=== PATIENT | male | born 1985 | race Caucasian/White ===

== ENCOUNTER 2016-10-19 11:33 | Emergency (ER) | payer BC ==
[2016-10-19] MEDS ORDERED: SODIUM CHLORIDE 0.9% 1,000 ML IV STA ×2 (13:12)
[2016-10-19] MEDS ORDERED: HYDROmorphone 1 MG/ML 1 ML SYRINGE IVP STA (13:14)
[2016-10-19] MEDS ORDERED: ONDANSETRON 4 MG/2 ML VIAL IVP STA (13:14)
[2016-10-19 13:41] LABS: Basophils # (A) 0.1 k/uL (0-0.2); Basophils % (A) 0 %; CH 31.1; CHCM 35.7; Eosinophils # (A) 0.2 k/uL (0-0.7); Eosinophils % (A) 1 %; HCT 42.6 % (39.0-53.0); HDW 2.88; HGB 14.7 gm/dL (13.0-17.5); Luc % (Auto) 2; Lymphocytes # (A) 1.6 k/uL (1.0-4.8); Lymphocytes % (A) 12 %; MCH 30.1 pg (25.0-35.0); MCHC 34.4 g/dL (31.0-37.0); MCV 87.5 fL (80.0-100.0); Mean Platelet Volume 6.8; Monocytes # (A) 0.9 k/uL (0-1.0); Monocytes % (A) 6 %; Neutrophils # (A) 11.1 k/uL (1.3-7.7); Neutrophils % (A) 79 %; RBC 4.87 m/uL (4.30-5.90); RDW 12.9 % (11.5-15.5); WBC (Perox) 14.26
--- NOTE | 2016-10-19 13:48 | ED ---
General Adult HPI - General Chief complaint: Abdominal Pain Stated complaint: Abdominal/Back Pain Time Seen by Provider: 10/19/16 13:01 Source: patient, RN notes reviewed Mode of arrival: wheelchair Limitations: no limitations - History of Present Illness Initial comments: Patient is a 31-year-old male who presents emergency room today with chief complaint of increased left-sided abdominal pain today. He does move to a history of some constipation. States she tried a laxative when he got home from work this morning. States she's been unable to go. He states having increased pain in the left side of the abdomen. He does admit to a history of a testicular mass. He states he was told by urology that he should have it removed. He states he was going to have a second pill and. He does admit that he had this follow-up approximately 2 months ago his nurse's been increased pain and increased size to the left testicle. He denies any other complaints or symptoms at this time. Patient denies any recent fever, chills, shortness of breath, chest pain, nausea or vomiting, numbness or tingling, dysuria or hematuria, constipation or diarrhea, headaches or visual changes, or any other complaints. - Related Data Previous Rx's Medication Instructions Recorded Hydrocodone/Acetaminophen [[place] 1 each PO Q6HR PRN #20 tab 10/19/16 5-325] Allergies Allergy/AdvReac Type Severity Reaction Status Date / Time codeine Allergy Vomiting Verified 10/19/16 11:48 Review of Systems ROS Statement: Those systems with pertinent positive or pertinent negative responses have been documented in the HPI. ROS Other: All systems not noted in ROS Statement are negative. Past Medical History Past Medical History: No Reported History History of Any Multi-Drug Resistant Organisms: None Reported Past Surgical History: Hernia Repair Past Anesthesia/Blood Transfusion Reactions: No Reported Reaction Additional Past Anesthesia/Blood Transfusion Reaction / Comment(s): never had anesthesia Past Psychological History: Anxiety Smoking Status: Former smoker Past Alcohol Use History: None Reported Past Drug Use History: None Reported - Past Family History Mother Family Medical History: No Reported History General Exam - General Exam Comments Initial Comments: General: The patient is awake and alert, in no distress, and does not appear acutely ill. Eye: Pupils are equal, round and reactive to light, extra-ocular movements are intact. No nystagmus. There is normal conjunctiva bilaterally. No signs of icterus. Ears, nose, mouth and throat: There are moist mucous membranes and no oral lesions. Neck: The neck is supple, there is no tenderness or JVD. Cardiovascular: There is a regular rate and rhythm. No murmur, rub or gallop is appreciated. Respiratory: Lungs are clear to auscultation, respirations are non-labored, breath sounds are equal. No wheezes, stridor, rales, or rhonchi. Gastrointestinal: Normal. Standard. Normal bowel sounds. Abdomen soft on palpation. Patient does have tenderness to the left lower quadrant. No rebound tenderness. No guarding. Musculoskeletal: Normal ROM, no tenderness. Strength 5/5. Sensation intact. Pulses equal bilaterally 2+. Neurological: A&O x 3. CN II-XII intact, There are no obvious motor or sensory deficits. Coordination appears grossly intact. Speech is normal. Skin: Skin is warm and dry and no rashes or lesions are noted. Psychiatric: Cooperative, appropriate mood & affect, normal judgment. : Patient does have abnormal appearance of the left testicle with increased swelling and irregularities. Firm on palpation. Limitations: no limitations Course Vital Signs 10/19/16 10/19/16 10/19/16 11:46 13:29 14:57 Temperature 98.5 F Pulse Rate 102 H 96 92 Respiratory 20 15 14 Rate Blood Pressure 136/61 126/64 125/67 O2 Sat by Pulse 99 97 95 Oximetry 10/19/16 15:05 Temperature Pulse Rate Respiratory 16 Rate Blood Pressure 125/67 O2 Sat by Pulse Oximetry Medical Decision Making - Medical Decision Making Case discussed in detail with attending physician Dr. Pradhan. Patient's labs been reviewed. Patient's ultrasound does show testicular masses. 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 These results were discussed with the patient. The importance of following up with his urologist and family doctor were discussed. Patient made aware that this is felt to be cancerous lesions in the left testicle at this time. Patient x-ray does show some moderate stool. He does admit to some constipation. We'll give magnesium citrate. He is requesting pain medication due to pain. It was discussed the narcotic use can cause constipation. He states he's aware of this. He will be given a short prescription of [place] to use but advised that he should make sure that he is able to have bowel movements prior to use of this. He is advised follow-up with his urologist and family doctor tomorrow. Patient advised to return to emergency room for any other concerns. Patient states understanding and is in agreement with this plan. - Lab Data Result diagrams: 10/19/16 12:46 10/19/16 12:46 Lab Results 10/19/16 10/19/16 10/19/16 Range/Units 12:46 12:46 16:00 WBC 14.0 H (3.8-10.6) k/uL RBC 4.87 (4.30-5.90) m/uL Hgb 14.7 (13.0-17.5) gm/dL Hct 42.6 (39.0-53.0) % MCV 87.5 (80.0-100.0) fL MCH 30.1 (25.0-35.0) pg MCHC 34.4 (31.0-37.0) g/dL RDW 12.9 (11.5-15.5) % Plt Count 357 (150-450) k/uL Neutrophils % 79 % Lymphocytes % 12 % Monocytes % 6 % Eosinophils % 1 % Basophils % 0 % Neutrophils # 11.1 H (1.3-7.7) k/uL Lymphocytes # 1.6 (1.0-4.8) k/uL Monocytes # 0.9 (0-1.0) k/uL Eosinophils # 0.2 (0-0.7) k/uL Basophils # 0.1 (0-0.2) k/uL Sodium 141 (137-145) mmol/L Potassium 3.9 (3.5-5.1) mmol/L Chloride 103 (98-107) mmol/L Carbon Dioxide 24 (22-30) mmol/L Anion Gap 14 mmol/L BUN 11 (9-20) mg/dL Creatinine 0.80 (0.66-1.25) mg/dL Est GFR (MDRD) Af Amer >60 (>60 ml/min/1.73 sqM) Est GFR (MDRD) Non-Af >60 (>60 ml/min/1.73 sqM) Glucose 84 (74-99) mg/dL Calcium 9.9 (8.4-10.2) mg/dL Total Bilirubin 0.5 (0.2-1.3) mg/dL AST 32 (17-59) U/L ALT 39 (21-72) U/L Alkaline Phosphatase 93 (38-126) U/L Total Protein 7.4 (6.3-8.2) g/dL Albumin 4.5 (3.5-5.0) g/dL Amylase 50 (30-110) U/L Lipase 309 H (23-300) U/L Urine Color Yellow Urine Appearance Clear (Clear) Urine pH 6.5 (5.0-8.0) Ur Specific [place] 1.016 (1.001-1.035) Urine Protein Negative (Negative) Urine Glucose (UA) Negative (Negative) Urine Ketones Negative (Negative) Urine Blood Negative (Negative) Urine Nitrate Negative (Negative) Urine Bilirubin Negative (Negative) Urine Urobilinogen 2.0 (<2.0) mg/dL Ur Leukocyte Esterase Negative (Negative) Disposition Clinical Impression: Testicular mass, Retroperitoneal lymphadenopathy Disposition: HOME SELF-CARE Condition: Stable Instructions: Testicle Pain (ED) Additional Instructions: Please use laxative as discussed. Please use pain medication as prescribed. Please follow-up the urologist and family doctor tomorrow as discussed. Please return here to the emergency room if any symptoms increase or worsen or for any other concerns. Prescriptions: Hydrocodone/Acetaminophen [[place] 5-325] 1 each PO Q6HR PRN #20 tab PRN Reason: Pain Referrals: None,Stated [Primary Care Provider] - 1-2 days Howie Gayle MD [STAFF PHYSICIAN] - 1-2 days Time of Disposition: 17:15
[2016-10-19 13:59] LABS: ALT 39 U/L (21-72); AST 32 U/L (17-59); Alkaline Phosphatase 93 U/L (38-126); Amylase 50 U/L (30-110); Anion Gap 14 mmol/L; Blood Urea Nitrogen 11 mg/dL (9-20); Calcium 9.9 mg/dL (8.4-10.2); Carbon Dioxide 24 mmol/L (22-30); Chloride 103 mmol/L (98-107); Glucose 84 mg/dL (74-99); Non-African American GFR(MDRD) >60 (>60 ml/min/1.73 sqM); Potassium 3.9 mmol/L (3.5-5.1); Sodium 141 mmol/L (137-145); Total Bilirubin 0.5 mg/dL (0.2-1.3); Total Protein 7.4 g/dL (6.3-8.2)
--- NOTE | 2016-10-19 15:11 | XR ---
EXAMINATION TYPE: XR KUB DATE OF EXAM ORDERED: 10/19/2016 3:05 PM HISTORY: Left-sided abdominal pain. COMPARISON: None. FINDINGS: The abdominal gas pattern is normal. There is no evidence of obstruction or free air. No u nusual calcifications are seen. IMPRESSION: NORMAL ABDOMEN.
[2016-10-19 15:42] VITALS: RESP 16
[2016-10-19] MEDS ORDERED: RX INFO: IV CONTRAST WAS GIVEN 1 EACH MISC MISCELLANE PRN (16:10)
[2016-10-19 16:43] LABS: Appearance,Urine Clear (Clear); Bilirubin,Urine Negative (Negative); Glucose,Urine (UA) Negative (Negative); Ketones,Urine Negative (Negative); Leukocyte Esterase,Urine Negative (Negative); Nitrite,Urine Negative (Negative); PH, Urine 6.5 (5.0-8.0); Protein,Urine Negative (Negative); Specific Gravity,Urine 1.016 (1.001-1.035); UA Billing (MACRO vs. MICRO) CHEM
--- NOTE | 2016-10-19 16:51 | CT ---
EXAMINATION TYPE: CT abdomen pelvis w con DATE OF EXAM: 10/19/2016 4:36 PM COMPARISON: NONE HISTORY: Left flank and scrotal pain CT DLP: 397 mGycm, Automated Exposure Control for Dose Reduction was Utilized. CONTRAST: CT scan of the abdomen and pelvis is performed without oral but with IV Contrast, patient injected wi th 100 mL of Omnipaque 300. FINDINGS: LUNG BASES: Dependent atelectatic changes seen in both lung bases. LIVER/GB: No significant abnormality is appreciated. PANCREAS: No significant abnormality is seen. SPLEEN: No significant abnormality is seen. ADRENALS: No significant abnormality is seen. KIDNEYS: There is suspected 1-2 nonobstructing calculi right kidney measuring up to 2 mm in size. Jus t below level of left renal artery and vein there is heterogeneous mass probable abnormal adenopathy left periaortic level measuring 3.1 x 2.1 cm. BOWEL: Evaluation bowel is suboptimal due to lack of enteric contrast. There is no suspicious small o r large bowel dilatation seen. PROSTATE/SEMINAL VESICLES: No gross abnormality seen. Right-sided pelvic phlebolith is noted. LYMPH NODES: C kidney section above there is suspected left groin adenopathy adjacent to left inferio r rectus muscle measuring 1.9 x 1.3 cm axial image 70. Heterogeneous left testicle correlates with re cent scrotal ultrasound. OSSEOUS STRUCTURES: No significant abnormality is seen. OTHER: No significant additional abnormality is seen. 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 Urology and oncol ogy nonemergent follow-up advised. Consider nonemergent PET/CT correlation.
[2016-10-19] MEDS ORDERED: MAGNESIUM CITRATE 296 ML BOTTLE PO ONE (17:17)
[2016-10-19 17:34] VITALS: BP 119/63; PULSE 87; TEMP 98.6
--- NOTE | 2016-10-19 18:03 | US ---
EXAMINATION TYPE: US scrotum with doppler. Grayscale and color Doppler Duplex imaging performed of t edna scrotum. DATE OF EXAM: 10/19/2016 2:57 PM COMPARISON: Prior testicular ultrasound August 15, 2016 CLINICAL HISTORY: Pain, history of multiple left scrotal masses. EXAM MEASUREMENTS: TESTICLES: Right Testicle: 4.7 x 2.5 x 3.4 cm Left Testicle: 5.6 x 3.2 x 4.1 cm EPIDIDYMIS HEAD: Right Epididymis: 1.0 cm Left Epididymis: 2.2 cm Doppler performed to assess for testicular vascularity; good bilateral color flow and waveforms are s een. Satisfactory arterial flow to and venous return from both testicles is identified. Left testicle is h eterogeneous in appearance with ill-defined heterogeneous hypervascular intratesticular mass felt red emonstrated. Current exam is suboptimal as comparison views not performed. TECHNOLOGIST IMPRESSION: Multiple complex vascular masses in the left testicle redemonstrated. 1. 4.1 x 2.8 x 3.1cm, mid 2. 1.5 x 1.7 x 1.4cm, mid 3. 2.8 x 1.8 x 2.4cm, lower pole Left epididymis appear enlarged and highly vascular on current study. IMPRESSION: No ultrasound evidence for left-sided testicular torsion. Possible left-sided epididymiti s/orchitis with increased vascularity to left epididymis felt present by technologist during real-kenneth e scanning. Left-sided testicular neoplasm once again must be strongly considered, urology follow-up is strongly advised.
== END 2016-10-19 17:41 | disposition home or self-care (01) ==
LOC: EC 11:33
DX: N50.89 Other specified disorders of the male genital organs (principal); R59.0 Localized enlarged lymph nodes; K59.00 Constipation, unspecified; Z87.891 Personal history of nicotine dependence; Z88.5 Allergy status to narcotic agent
CPT/HCPCS: 36415; 80053; 82150; 83690; 85025; 81003; 87086; 74000; 93975; 76870; 74177; 99285; 96374; 96375; 96361; J2405; J1170; Q9967

== ENCOUNTER → 2016-11-19 | Outpatient (CLI) | payer BC ==
--- NOTE | 2016-11-20 11:17 | PE ---
EXAMINATION TYPE: PET CT fusion skull to thigh DATE OF EXAM: 11/19/2016 4:18 PM COMPARISON: CT abdomen pelvis 10/19/2016 HISTORY: Testicular cancer TECHNIQUE: Following the intravenous administration of 12.03 mCi of F-18 FDG, whole body images are performed from the skull base to the midthigh. Images are reviewed on the computer in the coronal, a xial, and sagittal planes. Reconstructed rotating images are created on independent workstation and reviewed on the computer. A localization and attenuation correction CT is performed in conjunction with the PET scan. DLP: 337.31 mGycm SCAN: Initial Blood glucose: 78 mg/dL Average Mediastinum SUV: 1.2 Average Liver SUV: 1.5 FINDINGS: NECK: No abnormal uptake THORAX:No abnormal uptake within the mediastinum is evident. Uptake within the peripheral left lung pulmonary nodule identified on image 112 has an SUV value 1.3 which can be inflammatory in nature. This measures 0.7 cm. There is a second punctate density measuri ng 0.4 cm, image 125, measuring SUV of 1.7. This is inflammatory range. However, given the small size early. Metastatic lesion is not entirely excluded and follow-up is recommended. ABDOMEN AND PELVIS: There is a focal area of increased uptake within the medial left inguinal lymph n ode with an SUV value of 6.0 compatible with metastatic lesion. There is a more subtle area adjacent SUV value of 4.1 also within the range of metastatic there is a left obturator canal node with an SUV of 3.5. Image 224, metastasis should be considered. Differential would include activity within the b owel. Evaluation does not demonstrate the expected lymph node at this level. No suspicious uptake in the region of the renal veins is evident. OSSEOUS STRUCTURES: No abnormal uptake LOCALIZATION CT: Note is made of spondylolysis of L5 are apparent on the right. Left inguinal nodes a re evident on the localization CT: Hours difficult to separate from bowel. COMPARISON: Large soft tissue density near the level of the inferior pole left kidney does not have i ncreased radiotracer. The ureter appears to track posterior and medial to this structure. IMPRESSION: 1. Suspicion of metastatic lesions within left inguinal lymph nodes. 2. Uptake within the left obturator region may be within a lymph node which potentially could be meta static lesion or within a loop of colon. 3. The area of suspicion at the left renal vein level does not appear hyperintense. 4. There are at least 2 areas of intermediate suspicion within the left lung.
== END ==
LOC: RADPETMAIN 14:45
PROVIDERS: ATTEND Internal Medicine Hematology & Oncology
DX: C62.90 Malignant neoplasm of unspecified testis, unspecified whether descended or undescended (principal)
CPT/HCPCS: 78815; A9552

== ENCOUNTER → 2016-11-23 | Outpatient (CLI) | payer BC ==
--- NOTE | 2016-11-24 07:51 | ECHOF ---
Referral Reason:C62.12 testicular ca MEASUREMENTS -------- HEIGHT: 175.3 cm WEIGHT: 70.3 kg BP: 122/61 RVIDd: 2.3 cm (< 3.3) IVSd: 0.8 cm (0.6 - 1.1) LVIDd: 4.5 cm (3.9 - 5.3) LVPWd: 0.7 cm (0.6 - 1.1) IVSs: 1.4 cm LVIDs: 3.0 cm LVPWs: 1.3 cm LA Diam: 3.4 cm (2.7 - 3.8) LAESV Index (A-L): 24.57 ml/m Ao Diam: 2.9 cm (2.0 - 3.7) AV Cusp: 1.4 cm (1.5 - 2.6) LA Diam: 2.2 cm (2.7 - 3.8) MV EXCURSION: 21.085 mm (> 18.000) MV EF SLOPE: 191 mm/s (70 - 150) EPSS: 0.3 cm MV E Andrea: 0.96 m/s MV DecT: 203 ms MV A Andrea: 0.43 m/s MV E/A Ratio: 2.21 RAP: 5.00 mmHg RVSP: 25.69 mmHg FINDINGS -------- Sinus rhythm. This was a technically good study. Left ventricular wall thickness is normal. Overall left ventricular systolic function is normal with, an EF between 55 - 60 %. The right ventricle is normal in size. Normal LA size by volume 22+/-6 ml/m2. The right atrium is normal in size. Aortic valve is trileaflet and is mildly thickened. The mitral valve leaflets are mildly thickened. Mild mitral annular calcification present. There is trace mitral regurgitation. Trace tricuspid regurgitation present. Right ventricular systolic pressure is normal at < 35 mmHg. Trace/mild (physiologic) pulmonic regurgitation. The aortic root size is normal. The inferior vena cava is mildly dilated. There is no pericardial effusion. CONCLUSIONS -------- 1. Sinus rhythm. 2. Mild mitral annular calcification present. 3. There is trace mitral regurgitation. 4. Trace tricuspid regurgitation present. 5. Right ventricular systolic pressure is normal at < 35 mmHg. 6. Trace/mild (physiologic) pulmonic regurgitation. 7. The aortic root size is normal. 8. The inferior vena cava is mildly dilated. 9. There is no pericardial effusion. 10. This was a technically good study. 11. Left ventricular wall thickness is normal. 12. Overall left ventricular systolic function is normal with, an EF between 55 - 60 %. 13. The right ventricle is normal in size. 14. Normal LA size by volume 22+/-6 ml/m2. 15. The right atrium is normal in size. 16. Aortic valve is trileaflet and is mildly thickened. 17. The mitral valve leaflets are mildly thickened. WRAPPER REWINDER: Liseth Rosario RDCS
== END | disposition home or self-care (01) ==
LOC: CPPFTMAIN 13:06
PROVIDERS: ATTEND Internal Medicine Hematology & Oncology
DX: Z01.818 Encounter for other preprocedural examination (principal); C62.12 Malignant neoplasm of descended left testis; I34.0 Nonrheumatic mitral (valve) insufficiency; I37.1 Nonrheumatic pulmonary valve insufficiency
CPT/HCPCS: 93306; 94060; 94726; 94729

== ENCOUNTER 2016-12-01 14:28 | Day surgery (SDC) | payer BC ==
[2016-12-01 14:44] VITALS: RESP 18
[2016-12-01 15:35] VITALS: BP 126/68; PULSE 84; TEMP 98.2
--- NOTE | 2016-12-07 13:48 | IR ---
Fluoroscopic portogram([facility]). HISTORY: Device malfunction. The patient presented to the CVL with a Rivera needle within the port. Preliminary fluoroscopy demonst rated the catheter to be intact. There is free spillage from the distal margin of the catheter wit h no evidence of extravasation or obstruction. IMPRESSION: 1. No obstruction or extravasation. See above.
== END 2016-12-01 15:10 | disposition home or self-care (01) ==
LOC: CATHCVL 14:28
PROVIDERS: ATTEND Radiology Diagnostic Radiology
DX: Z45.2 Encounter for adjustment and management of vascular access device (principal); C62.12 Malignant neoplasm of descended left testis; Z90.79 Acquired absence of other genital organ(s); Z79.899 Other long term (current) drug therapy; Z88.5 Allergy status to narcotic agent
CPT/HCPCS: 36598

== ENCOUNTER → 2017-03-31 | Outpatient (CLI) | payer BC ==
[2017-03-31 14:08] LABS: Blood Urea Nitrogen 7 mg/dL (9-20); Non-African American GFR(MDRD) >60 (>60 ml/min/1.73 sqM)
--- NOTE | 2017-03-31 15:23 | CT ---
EXAMINATION TYPE: CT ChestAbdPelvis w con DATE OF EXAM: 03/31/2017 COMPARISON: Reports [address], [address] abdomen pelvis 10/19/2016 HISTORY: CT DLP: mGycm Automated exposure control for dose reduction was used. CONTRAST: CT scan of the chest, abdomen and pelvis is performed and , patient injected with mL of . FINDINGS: LUNGS: There is a 3 mm subpleural nodule in the right upper lobe. Additional vague density posteriorl y in the right upper lobe likely postinflammatory measuring 4 mm. No consolidation or pleural effusio n. No pneumothorax. Linear density along the periphery of the left lower lobe superior segment is lik pat post inflammatory. Coarsened interlobular septal thickening at the lung bases suggest interstitia l lung disease. Left-sided pulmonary nodule seen in the upper lobe measuring 6.7 mm on the previous exam now measures 2 mm.. MEDIASTINUM: There are no greater than 1 cm hilar or mediastinal lymph nodes. No pericardial effusi on is seen. OTHER: Shotty adenopathy in the axilla. Mediport catheter noted.. LIVER/GB: No significant abnormality is appreciated. PANCREAS: No significant abnormality is seen. SPLEEN: No significant abnormality is seen. ADRENALS: No significant abnormality is seen. KIDNEYS: There is suspected 1-2 nonobstructing calculi right kidney measuring up to 2 mm in size. BOWEL: No significant abnormality is seen. LYMPH NODES: Left inguinal lymph node now measures 1.1 cm in short axis and previously measured 1.3 c m in short axis. Additional shotty inguinal and femoral adenopathy noted. These nodules and tiny lymp h nodes are stable.. The previously described area in the left perirenal region there is a lymph node which appears reduced in size measuring short axis of 8 mm. OSSEOUS STRUCTURES: No significant abnormality is seen. Small periumbilical hernia noted. IMPRESSION: 1. There is interval reduction in size of the left upper lobe pulmonary nodule which measures 2 mm an d previously measured 6 mm. Remaining tiny punctate pulmonary nodules are stable. 2. Interval reduction in size of the left periaortic lymph node which now measures a short axis of 1. 1 cm and previously measured 1.3 cm. 3. No new areas of suspicious adenopathy..
== END ==
LOC: RADPROMAIN 13:32
PROVIDERS: ATTEND Internal Medicine Hematology & Oncology
DX: C62.12 Malignant neoplasm of descended left testis (principal); R91.8 Other nonspecific abnormal finding of lung field; Z88.5 Allergy status to narcotic agent
CPT/HCPCS: 82565; 84520; 71260; 74177; Q9967; J1642

== ENCOUNTER 2017-04-22 23:47 | Emergency (ER) | payer BC ==
[2017-04-23 00:05] VITALS: RESP 18
[2017-04-23] MEDS ORDERED: methylPREDNISolone SOD SUCCI 125 MG/2 ML VIAL IM STA (00:38)
--- NOTE | 2017-04-23 00:46 | ED ---
General Adult HPI - General Chief complaint: Skin/Abscess/Foreign Body Stated complaint: Rash Time Seen by Provider: 04/23/17 00:08 Source: patient, family, RN notes reviewed, old records reviewed Mode of arrival: ambulatory Limitations: no limitations - History of Present Illness Initial comments: chief complaint history of present illness patient presents with a pruritic rash to his hands and over his face. Patient does not know what may have caused this to one time in the past, proximal 4 years ago he can emergency room at a shot of steroids and improved. He's been trying Benadryl at home without resolution. No difficulty breathing. - Related Data Home Medications Medication Instructions Recorded Confirmed Famotidine [Pepcid] 20 mg PO DAILY 12/26/16 02/14/17 Previous Rx's Medication Instructions Recorded Hydrocodone/Acetaminophen [[place] 1 each PO Q6HR PRN #20 tab 10/19/16 5-325] methylPREDNISolone Dose Pack 4 mg PO DIRECTED #21 package 04/23/17 [Medrol Dose Pack] Allergies Allergy/AdvReac Type Severity Reaction Status Date / Time codeine Allergy Vomiting Verified 04/23/17 00:05 Review of Systems ROS Statement: Those systems with pertinent positive or pertinent negative responses have been documented in the HPI. U of systems no other complaints other than pruritic rash to his hands going up the forearms and over the bridge of his nose and cheeks. Denies knowing what may have caused it. Past medical problems significant for testicular cancer diagnosed and treated over the past several months. Surgeries left testicular removal. Followed by chemotherapy. Denies chemo at this time. Family history no cancers. Patient has ALLERGIES to codeine. He does smoke and is encouraged to stop denies alcohol use ROS Other: All systems not noted in ROS Statement are negative. Past Medical History Past Medical History: Cancer Additional Past Medical History / Comment(s): testicular cancer History of Any Multi-Drug Resistant Organisms: None Reported Past Surgical History: Hernia Repair Additional Past Surgical History / Comment(s): Mediport Past Anesthesia/Blood Transfusion Reactions: No Reported Reaction Additional Past Anesthesia/Blood Transfusion Reaction / Comment(s): never had anesthesia Past Psychological History: Anxiety Smoking Status: Current every day smoker Past Alcohol Use History: None Reported Past Drug Use History: None Reported - Past Family History Mother Family Medical History: No Reported History General Exam - General Exam Comments Initial Comments: General: The patient is awake and alert, complaining of a four-day irritation, rash hands and face. Vital signs stable Eye: Pupils are equal, , extra-ocular movements are intact; there is normal conjunctiva bilaterally. No signs of icterus. Ears, nose, mouth and throat: red rash over his face Respiratory: difficulty breathing, no wheezing, no shortness of breath Skinor rash over his hands forearms and face. Limitations: no limitations Course Vital Signs 04/23/17 00:03 Temperature 98.4 F Pulse Rate 96 Respiratory 18 Rate Blood Pressure 127/81 O2 Sat by Pulse 99 Oximetry Medical Decision Making - Medical Decision Making she'll receive a shot of [place] [facility] emergency room. Told to continue with home Benadryl 50 mg 3 times daily. And Medrol Dosepak. Follow follow up with the family physician. Disposition Clinical Impression: Rash due to allergy Disposition: HOME SELF-CARE Condition: Fair Instructions: Acute Rash (ED) Additional Instructions: Take Benadryl 50 mg 3 times a day. Take the Medrol Dosepak until complete. Follow-up with family physician Prescriptions: methylPREDNISolone Dose Pack [Medrol Dose Pack] 4 mg PO DIRECTED #21 package Referrals: None,Stated [Primary Care Provider] - 1-2 days Time of Disposition: 00:46
[2017-04-23 01:04] VITALS: BP 135/89; PULSE 82; TEMP 98.7
== END 2017-04-23 01:03 | disposition home or self-care (01) ==
LOC: EC 23:47
DX: T78.40XA Allergy, unspecified, initial encounter (principal); F17.200 Nicotine dependence, unspecified, uncomplicated; Z85.47 Personal history of malignant neoplasm of testis; Z79.899 Other long term (current) drug therapy; Z88.5 Allergy status to narcotic agent
CPT/HCPCS: 99283; 96372; J2930

== ENCOUNTER → 2017-05-09 | Outpatient (CLI) | payer BC | END | disposition home or self-care (01) | LOC: CPPFTMAIN 10:55 | PROVIDERS: ATTEND Internal Medicine Hematology & Oncology | DX: Z01.818 Encounter for other preprocedural examination (principal); C62.12 Malignant neoplasm of descended left testis | CPT/HCPCS: 94060; 94726; 94729 ==

== ENCOUNTER → 2017-05-13 | Outpatient (CLI) | payer BC | END | disposition home or self-care (01) | LOC: RADPETMAIN 12:22 | PROVIDERS: ATTEND Internal Medicine Hematology & Oncology | DX: Z53.9 Procedure and treatment not carried out, unspecified reason (principal) ==

== ENCOUNTER → 2017-05-20 | Outpatient (CLI) | payer BC ==
--- NOTE | 2017-05-20 19:02 | PE ---
EXAMINATION TYPE: PET CT fusion skull to thigh DATE OF EXAM: 05/20/2017 COMPARISON: Most recent CT cap March 31, 2017. PET CT November 19, 2016. HISTORY: Testicular cancer progress study after chemotherapy per patient TECHNIQUE: Following the intravenous administration of 14.26 mCi of F-18 FDG, whole body images are performed from the skull base to the midthigh. Images are reviewed on the computer in the coronal, a xial, and sagittal planes. Reconstructed rotating images are created on independent workstation and reviewed on the computer. A localization and attenuation correction CT is performed in conjunction with the PET scan. SCAN: Subsequent Scan FINDINGS: SKULL BASE AND NECK: No suspicious hypermetabolic uptake identified on current study. CHEST, MEDIASTINUM, AND HILAR REGION: Lingular nodule measuring 7 mm on prior PET/CT now is punctate measuring 2 mm on current study axial image 94. Previously visualized 4 mm nodule posterior left lung base is not clearly identified on current study. No new nodules or abnormal hypermetabolic uptake is identified on current study. ABDOMEN AND PELVIS: Previously visualized left external iliac or inguinal metastatic lesion is signif icantly diminished in size measuring 7 x 6 mm on current study axial image 211. No new adenopathy or suspicious hypermetabolic uptake is identified on current study. Abnormal hypermetabolic left periaor tic lymph node on prior study image 163 shows tiny lymph nodes at this level without hypermetabolic u ptake largest measuring 8 x 6 mm on axial image 143. OSSEOUS STRUCTURES: No suspicious hypermetabolic uptake is identified. OTHER CT: Right-sided pars defect L5 level is redemonstrated. There is new right internal jugular central venous catheter with tip in SVC. There are 1-2 calculi scattered throughout right kidney measuring 2 mm or smaller in size redemonstra palak. IMPRESSION: No suspicious hypermetabolic uptake on current study to suggest residual neoplasm. Posit amaya treatment response noted.
== END | disposition home or self-care (01) ==
LOC: RADPETMAIN 14:35
PROVIDERS: ATTEND Internal Medicine Hematology & Oncology
DX: C62.12 Malignant neoplasm of descended left testis (principal)
CPT/HCPCS: 78815; A9552

== ENCOUNTER 2017-06-23 08:00 | Day surgery (SDC) | payer BC ==
[2017-06-21 08:45] VITALS: BMI 23.6
[~2017-06-23 08:00] MED LIST: DEXAMETHASONE SOD PHOSPHATE 10 MG/ML 1 ML VIAL IV ONE; HEPARIN SODIUM,PORCINE 5,000 UNIT/ML 1 ML VIAL SQ ONE; HYDROmorphone 0.5 MG/0.5 ML SYRINGE IVP PRN; LACTATED RINGERS 1,000 ML IV SCH; MIDAZOLAM 2 MG/2 ML VIAL IV PRN; ONDANSETRON 4 MG/2 ML VIAL IVP ONE; SCOPOLAMINE 1.5MG/72HR PATCH TRANSDERM ONE; ceFAZolin 2 GM in SODIUM CHLORIDE 0.9% 100 ML IVPB ONE
[2017-06-23] MEDS ORDERED: LIDOCAINE 1% 20 ML VIAL (10MG/ML) FOR IV START INTRADERMA ONE (08:25)
[2017-06-23 08:38] VITALS: RESP 16; TEMP 97.9
--- NOTE | 2017-06-23 09:18 | P.GSHP ---
History of Present Illness H&P Date: 06/23/17 Chief Complaint: Testicular cancer Patient is here today for Port-A-Cath removal. He underwent recent chemotherapy for testicular cancer. During the course of the treatment he had no issues with this port that he is aware of. Past Medical History Past Medical History: Cancer Additional Past Medical History / Comment(s): testicular cancer History of Any Multi-Drug Resistant Organisms: None Reported Past Surgical History: Hernia Repair Additional Past Surgical History / Comment(s): Mediport Past Anesthesia/Blood Transfusion Reactions: No Reported Reaction Additional Past Anesthesia/Blood Transfusion Reaction / Comment(s): never had anesthesia Smoking Status: Former smoker - Past Family History Mother Family Medical History: No Reported History Medications and Allergies Home Medications Medication Instructions Recorded Confirmed Type No Known Home Medications [No 06/21/17 06/23/17 History Known Home Medications] Allergies Allergy/AdvReac Type Severity Reaction Status Date / Time codeine Allergy Vomiting Verified 06/23/17 08:14 Surgical - Exam Vital Signs Temp Pulse Resp BP Pulse Ox 97.9 F 73 16 126/82 99 06/23/17 08:37 06/23/17 08:37 06/23/17 08:37 06/23/17 08:37 06/23/17 08:37 Physical exam: General: Well-developed, well-nourished HEENT: Normocephalic, sclerae nonicteric Abdomen: Nontender, nondistended Extremities: No edema Neuro: Alert and oriented Assessment and Plan (1) Testicular cancer Narrative/Plan: Will proceed with Port-A-Cath removal Status: Acute
[2017-06-23] MEDS ORDERED: MIDAZOLAM 2 MG/2 ML VIAL ONE (09:40)
[2017-06-23] MEDS ORDERED: fentaNYL (PF) 50 MCG/ML 2 ML AMP ONE (09:40)
[2017-06-23] MEDS ORDERED: PROPOFOL 10 MG/ML 20 ML VIAL IV ONE (09:40)
[2017-06-23] MEDS ORDERED: LIDOCAINE (PF) 10 MG/ML 5ML AMP SQ ONE ×2 (09:51)
[2017-06-23] MEDS ORDERED: NALOXONE 0.4 MG/ML 1 ML VIAL IV PRN (10:18)
[2017-06-23] MEDS ORDERED: HYDROcodone/APAP 5-325MG 1 EACH TAB PO PRN (10:18)
--- NOTE | 2017-06-23 10:23 | P.PCN ---
Date of Procedure: 06/23/17 Procedure(s) Performed: PREOPERATIVE DIAGNOSIS: Testicular cancer POSTOPERATIVE DIAGNOSIS: Same PROCEDURE: Port-A-Cath removal SURGEON: Yoav EBL: Minimal ANESTHESIA: Sedation COMPLICATIONS: None OPERATIVE PROCEDURE: Patient was placed in the supine position. The patient was sedated per anesthesia that time. The chest was prepped and draped in the usual sterile fashion. The skin was localized with Marcaine solution. The previous incision was re-incised using a scalpel. The port was easily excised using accommodation of blunt dissection sharp dissection and electrocautery. The subcutaneous tissues were reapproximated using 3-0 Vicryl sutures. The skin was reapproximated using 4-0 Monocryl sutures. Steri-Strips and sterile dressings were then applied. DISPOSITION: Stable to recovery room
[2017-06-23 10:45] VITALS: BP 128/71; PULSE 74
== END 2017-06-23 10:54 | disposition home or self-care (01) ==
LOC: OR 08:00
PROVIDERS: ATTEND Surgery
DX: Z45.2 Encounter for adjustment and management of vascular access device (principal); C62.90 Malignant neoplasm of unspecified testis, unspecified whether descended or undescended; Z87.891 Personal history of nicotine dependence; K21.9 Gastro-esophageal reflux disease without esophagitis; Z88.5 Allergy status to narcotic agent
CPT/HCPCS: 36590; J2250; J1644; J1100; J0690; J2405; J2001; J3010; J2704

== ENCOUNTER → 2017-11-08 | Outpatient (CLI) | payer BC ==
--- NOTE | 2017-11-08 10:32 | CT ---
EXAMINATION TYPE: CT ChestAbdPelvis w con DATE OF EXAM: 11/08/2017 COMPARISON: 05/20/2017 and 03/31/2017 HISTORY: 32-year-old male follow-up Testicular cancer. Left side, observation for metastatic disease. TECHNIQUE: Contiguous axial scanning of the chest, abdomen, and pelvis performed with IV Contrast, pa tient injected with 100 ml mL of Omnipaque 300. Delayed images through the kidneys were obtained. Cor onal/sagittal reconstructions performed. CT DLP: 1641 mGycm Automated exposure control for dose reduction was used. FINDINGS: Chest: Heart is normal size without pericardial effusion. Aorta normal caliber with conventional arch vessel branching anatomy. No thoracic lymphadenopathy by CT size criteria. Punctate 3 mm inferior lingular pulmonary nodule remains, stable from 05/20/2017. No new pulmonary nodu les. No consolidation or pleural effusion. ABDOMEN: No focal liver lesions or biliary ductal dilatation. Main portal vein is patent. Gallbladder, adrenal glands, kidneys, spleen, and pancreas appear within normal limits. Scattered nonenlarged mesenteric lymph nodes measuring up to 5 mm. No retroperitoneal lymphadenopathy . No dilated small bowel, free fluid, or free air. Oral contrast has progressed to the hepatic flexure. Moderate stool burden without pericolonic inflam matory change. Pelvis: Bladder urine distended. Pelvic phleboliths. Postsurgical changes along the left inguinal canal persi st with a chronic 1.9 cm fluid collection along the deep inguinal ring. Scattered nonenlarged external iliac chain lymph nodes remain, unchanged from 05/20/2017. Bones: Right L5 pars defect and mild degenerative changes of the facet joints in the lower lumbar spine rede monstrated. No osseous destructive process. IMPRESSION: 1. 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 2. STABLE PUNCTATE 3 MM INFERIOR LINGULAR PULMONARY NODULE. NO NEW PULMONARY NODULES. 3. NO NEW MASS OR LYMPHADENOPATHY IDENTIFIED TO SUGGEST RECURRENCE OF METASTATIC DISEASE. 4. REDEMONSTRATED RIGHT L5 PARS DEFECT.
== END | disposition home or self-care (01) ==
LOC: RADCTMAIN 08:48
PROVIDERS: ATTEND Internal Medicine Hematology & Oncology
DX: R91.1 Solitary pulmonary nodule (principal); Z85.47 Personal history of malignant neoplasm of testis; Z88.5 Allergy status to narcotic agent; Z98.890 Other specified postprocedural states
CPT/HCPCS: 71260; 74177; Q9967

== ENCOUNTER 2018-11-21 00:11 | Emergency (ER) | payer BC ==
[2018-11-21 00:19] VITALS: RESP 18
[2018-11-21 01:30] LABS: Basophils # (A) 0.1 k/uL (0-0.2); Basophils % (A) 1 %; Eosinophils # (A) 0.3 k/uL (0-0.7); Eosinophils % (A) 4 %; HCT 39.3 % (39.0-53.0); HGB 13.9 gm/dL (13.0-17.5); Lymphocytes # (A) 2.3 k/uL (1.0-4.8); Lymphocytes % (A) 34 %; MCH 30.6 pg (25.0-35.0); MCHC 35.4 g/dL (31.0-37.0); MCV 86.6 fL (80.0-100.0); Mean Platelet Volume 6.9; Monocytes # (A) 0.4 k/uL (0-1.0); Monocytes % (A) 6 %; Neutrophils # (A) 3.4 k/uL (1.3-7.7); Neutrophils % (A) 52 %; Platelet Count 293 k/uL (150-450); RBC 4.54 m/uL (4.30-5.90); RDW 12.8 % (11.5-15.5); WBC 6.6 k/uL (3.8-10.6)
[2018-11-21 01:32] LABS: ALT 46 U/L (21-72); AST 34 U/L (17-59); Albumin 4.8 g/dL (3.5-5.0); Alkaline Phosphatase 93 U/L (38-126); Amylase 67 U/L (30-110); Anion Gap 9 mmol/L; Blood Urea Nitrogen 18 mg/dL (9-20); Calcium 10.1 mg/dL (8.4-10.2); Carbon Dioxide 26 mmol/L (22-30); Chloride 107 mmol/L (98-107); Glucose 94 mg/dL (74-99); Lipase 185 U/L (23-300); Sodium 142 mmol/L (137-145); Total Bilirubin 0.6 mg/dL (0.2-1.3); Total Protein 7.5 g/dL (6.3-8.2)
[2018-11-21] MEDS ORDERED: FAMOTIDINE 20 MG TAB PO STA (01:45)
--- NOTE | 2018-11-21 01:47 | ED ---
Abdominal Pain HPI - General Chief Complaint: Abdominal Pain Stated Complaint: abd pain Time Seen by Provider: 11/21/18 00:22 Source: patient Mode of arrival: ambulatory Limitations: no limitations - History of Present Illness Initial Comments: This patient is a 33-year-old man who presents to be evaluated for abdominal pains. He indicates the epigastric area. He states that have been going on intermittently going back a year now. He states that the pain is currently resolved. When asked about the character of the pain he indicates that it somet imes is aching sometimes cramping sometimes burning. He states he has not had any associated symptoms. MD Complaint: abdominal pain Onset/Timin -: year(s) Location: epigastric Radiation: none Quality: cramping, aching, burning Consistency: intermittent, now resolved Improves With: nothing Worsens With: nothing Associated Symptoms: denies other symptoms - Related Data Previous Rx's Medication Instructions Recorded Hydrocodone/Acetaminophen [[place] 1 - 2 each PO Q4HR PRN #14 tab 06/23/17 5-325] Famotidine [Pepcid] 20 mg PO BID #14 tablet 11/21/18 Allergies Allergy/AdvReac Type Severity Reaction Status Date / Time codeine Allergy Vomiting Verified 11/21/18 00:19 Review of Systems ROS Statement: Those systems with pertinent positive or pertinent negative responses have been documented in the HPI. ROS Other: All systems not noted in ROS Statement are negative. Constitutional: Denies: fever, chills Respiratory: Denies: cough, dyspnea Cardiovascular: Denies: chest pain, palpitations Gastrointestinal: Reports: abdominal pain. Denies: nausea, vomiting, diarrhea, constipation Genitourinary: Denies: dysuria, hematuria Musculoskeletal: Denies: back pain Skin: Denies: rash Neurological: Denies: headache Past Medical History Past Medical History: Cancer Additional Past Medical History / Comment(s): testicular cancer, History of Any Multi-Drug Resistant Organisms: None Reported Past Surgical History: Hernia Repair Additional Past Surgical History / Comment(s): Mediport removed, Past Anesthesia/Blood Transfusion Reactions: No Reported Reaction Additional Past Anesthesia/Blood Transfusion Reaction / Comment(s): never had anesthesia Past Psychological History: Anxiety Smoking Status: Former smoker Past Alcohol Use History: None Reported Past Drug Use History: None Reported - Past Family History Mother Family Medical History: No Reported History General Exam Limitations: no limitations General appearance: alert, in no apparent distress Head exam: Present: atraumatic, normocephalic Eye exam: Present: normal appearance ENT exam: Present: normal oropharynx Respiratory exam: Present: normal lung sounds bilaterally. Absent: respiratory distress, wheezes, rales, rhonchi, stridor Cardiovascular Exam: Present: regular rate, normal rhythm, normal heart sounds. Absent: systolic murmur, diastolic murmur, rubs, gallop GI/Abdominal exam: Present: soft. Absent: distended, tenderness, guarding, rebound, rigid, mass Extremities exam: Present: normal inspection, normal capillary refill. Absent: pedal edema, calf tenderness Back exam: Present: normal inspection. Absent: CVA tenderness (R), CVA tenderness (L) Skin exam: Present: warm, dry, intact, normal color. Absent: rash Course Vital Signs 11/21/18 11/21/18 00:14 03:23 Temperature 98.1 F 97.9 F Pulse Rate 67 75 Respiratory 18 18 Rate Blood Pressure 126/83 108/93 O2 Sat by Pulse 100 98 Oximetry Medical Decision Making - Lab Data Result diagrams: 11/21/18 01:00 11/21/18 01:00 Lab Results 11/21/18 11/21/18 11/21/18 Range/Units 01:00 01:00 01:47 WBC 6.6 (3.8-10.6) k/uL RBC 4.54 (4.30-5.90) m/uL Hgb 13.9 (13.0-17.5) gm/dL Hct 39.3 (39.0-53.0) % MCV 86.6 (80.0-100.0) fL MCH 30.6 (25.0-35.0) pg MCHC 35.4 (31.0-37.0) g/dL RDW 12.8 (11.5-15.5) % Plt Count 293 (150-450) k/uL Neutrophils % 52 % Lymphocytes % 34 % Monocytes % 6 % Eosinophils % 4 % Basophils % 1 % Neutrophils # 3.4 (1.3-7.7) k/uL Lymphocytes # 2.3 (1.0-4.8) k/uL Monocytes # 0.4 (0-1.0) k/uL Eosinophils # 0.3 (0-0.7) k/uL Basophils # 0.1 (0-0.2) k/uL Sodium 142 (137-145) mmol/L Potassium 4.0 (3.5-5.1) mmol/L Chloride 107 (98-107) mmol/L Carbon Dioxide 26 (22-30) mmol/L Anion Gap 9 mmol/L BUN 18 (9-20) mg/dL Creatinine 1.16 (0.66-1.25) mg/dL Est GFR (CKD-EPI)AfAm >90 (>60 ml/min/1.73 sqM) Est GFR (CKD-EPI)NonAf 82 (>60 ml/min/1.73 sqM) Glucose 94 (74-99) mg/dL Calcium 10.1 (8.4-10.2) mg/dL Total Bilirubin 0.6 (0.2-1.3) mg/dL AST 34 (17-59) U/L ALT 46 (21-72) U/L Alkaline Phosphatase 93 (38-126) U/L Total Protein 7.5 (6.3-8.2) g/dL Albumin 4.8 (3.5-5.0) g/dL Amylase 67 (30-110) U/L Lipase 185 (23-300) U/L Urine Color Yellow Urine Appearance Cloudy (Clear) Urine pH 7.0 (5.0-8.0) Ur Specific [place] 1.019 (1.001-1.035) Urine Protein Negative (Negative) Urine Glucose (UA) Negative (Negative) Urine Ketones Negative (Negative) Urine Blood Negative (Negative) Urine Nitrite Negative (Negative) Urine Bilirubin Negative (Negative) Urine Urobilinogen <2.0 (<2.0) mg/dL Ur Leukocyte Esterase Negative (Negative) Urine RBC 1 (0-5) /hpf Urine WBC 1 (0-5) /hpf Amorphous Sediment Occasional H (None) /hpf Urine Mucus Occasional H (None) /hpf Disposition Clinical Impression: Abdominal pain Disposition: HOME SELF-CARE Condition: Good Instructions (If sedation given, give patient instructions): Abdominal Pain (ED) Prescriptions: Famotidine [Pepcid] 20 mg PO BID #14 tablet Is patient prescribed a controlled substance at d/c from ED?: No Referrals: Ofelia Bean MD [STAFF PHYSICIAN] - 1-2 days Brianne Weston MD [REFERRING] - 1-2 days
[2018-11-21 02:59] LABS: Amorphous Sediment,Urine Occasional /hpf; Appearance,Urine Cloudy (Clear); Bilirubin,Urine Negative (Negative); Blood,Urine Negative (Negative); Color,Urine Yellow; Glucose,Urine (UA) Negative (Negative); Ketones,Urine Negative (Negative); Leukocyte Esterase,Urine Negative (Negative); Mucus,Urine Occasional /hpf; Nitrite,Urine Negative (Negative); Protein,Urine Negative (Negative); RBC,Urine 1 /hpf (0-5); Specific Gravity,Urine 1.019 (1.001-1.035); Urobilinogen,Urine <2.0 mg/dL (<2.0); WBC,Urine 1 /hpf (0-5)
[2018-11-21 03:24] VITALS: BP 108/93; PULSE 75; TEMP 97.9
== END 2018-11-21 03:24 | disposition home or self-care (01) ==
LOC: EC 00:11
DX: R10.13 Epigastric pain (principal); Z87.891 Personal history of nicotine dependence; Z88.5 Allergy status to narcotic agent; Z85.47 Personal history of malignant neoplasm of testis
CPT/HCPCS: 36415; 80053; 81001; 82150; 83690; 85025; 99284

== ENCOUNTER 2018-12-10 11:12 | Day surgery (SDC) | payer BC ==
[2018-12-06 13:13] VITALS: BMI 25.1
[~2018-12-10 11:12] MED LIST changes: -DEXAMETHASONE SOD PHOSPHATE 10 MG/ML 1 ML VIAL IV ONE; -HEPARIN SODIUM,PORCINE 5,000 UNIT/ML 1 ML VIAL SQ ONE; -HYDROmorphone 0.5 MG/0.5 ML SYRINGE IVP PRN; +LIDOCAINE 1% 20 ML VIAL (10MG/ML) FOR IV START INTRADERMA PRN; -MIDAZOLAM 2 MG/2 ML VIAL IV PRN; -ONDANSETRON 4 MG/2 ML VIAL IVP ONE; -SCOPOLAMINE 1.5MG/72HR PATCH TRANSDERM ONE; -ceFAZolin 2 GM in SODIUM CHLORIDE 0.9% 100 ML IVPB ONE
[2018-12-10 11:43] VITALS: RESP 18; TEMP 97.3
[2018-12-10] MEDS ORDERED: PROPOFOL 10 MG/ML 20 ML VIAL IV ONE (12:28)
--- NOTE | 2018-12-10 13:15 | P.PCN ---
Date of Procedure: 12/10/18 Procedure(s) Performed: Procedures: 1. Esophagogastroduodenoscopy and biopsy. 2. Total colonoscopy. Preoperative diagnosis: Epigastric pain and rectal bleeding. Postoperative diagnosis: 1. Sliding hiatal hernia with LA grade B distal esophagitis. 2. Mild gastritis and duodenitis. 3. Biopsies obtained from the duodenum, antrum and esophagus. 4. Colon exam essentially within normal limits. Preparation: HalfLytely prep. Sedation: Was provided by anesthesia. Brief clinical history: The patient is a 33-year-old male with history of testicular cancer diagnosed in 2015 for which he underwent orchiectomy and chemotherapy. He has been having gastrointestinal issues since that time including epigastric and left lower quadrant pains. There is history of heartburn that resolved with Zantac. CT of the abdomen this October was negative. He was in the emergency room earlier this month and had normal CBC and CMP. This evaluation is to assess for peptic ulcer disease or other pathology. Procedure: With the patient on his left lateral decubitus position and after informed consent and adequate sedation, I passed the Olympus-GIF H190 video upper endoscope through the cricopharyngeus down the esophagus. GE junction was around 38 cm from the incisors and there was a small sliding hiatal hernia. The distal esophagus showed few short linear erosions terminating at the level of the GE junction consistent with LA grade B distal esophagitis. The endoscope was then passed into the stomach which was insufflated with air and inspected in detail including the retroflex view in the cardia. There was some mottling and erythema in the antrum but no ulcers or erosions. Pyloric channel did not show any ulcers. Duodenal bulb showed mottling, erythema and few scattered erosions but no ulcers or bleeding. Post bulbar area and descending duodenum within normal limits. I obtained biopsies from the duodenum, antrum and esophagus then the endoscope was withdrawn and I proceeded to perform the colonoscopy. Perianal area did not show any fissures or fistulas. There were no masses felt on digital rectal examination. The Olympus CFH 190L video colonoscope was then inserted in the rectum in the usual fashion and advanced to the cecum. The mucosa appeared healthy. No polyps or tumors were seen or any obvious diverticular disease or other pathology or any evidence of bleeding. The patient tolerated the procedure well. Plan: The patient was reassured. Will await biopsy results. In the meantime we will maximize acid suppressive therapy and continue antireflux diet and measures. Further plans based on his course and biopsy results. Would keep you updated on his progress.
[2018-12-10 13:23] VITALS: BP 135/99; PULSE 66
== END 2018-12-10 14:05 | disposition home or self-care (01) ==
LOC: ORWHC2ENDO 11:12
DX: K44.9 Diaphragmatic hernia without obstruction or gangrene (principal); K29.70 Gastritis, unspecified, without bleeding; K29.80 Duodenitis without bleeding; Z85.47 Personal history of malignant neoplasm of testis; Z92.21 Personal history of antineoplastic chemotherapy; Z88.5 Allergy status to narcotic agent; Z79.899 Other long term (current) drug therapy; K21.0 Gastro-esophageal reflux disease with esophagitis
CPT/HCPCS: 88305; 45378; 43239; J2704

== ENCOUNTER → 2019-09-14 | Outpatient (CLI) | payer BC ==
--- NOTE | 2019-09-14 13:28 | CT ---
EXAMINATION TYPE: CT abdomen wo/w con DATE OF EXAM: 09/14/2019 COMPARISON: CT November 08, 2017 HISTORY: History of testicular cancer, gastritis and hiatal hernia. Bilateral flank pain and epigastr ic pain. CT DLP: 530.3 mGycm, Automated Exposure Control for Dose Reduction was Utilized. CONTRAST: CT scan of the abdomen is performed without oral and without and with IV Contrast, patient injected w ith 100 mL of Isovue 300. FINDINGS: LUNG BASES: No significant abnormality is appreciated. LIVER/GB: No significant abnormality is appreciated. PANCREAS: No significant abnormality is seen. SPLEEN: No significant abnormality is seen. ADRENALS: No significant abnormality is seen. KIDNEYS: Noncontrast images show no renal calculi bilaterally. Postcontrast images show symmetric cor tical medullary uptake and excretion without concerning solid or cystic renal mass or hydronephrosis seen bilaterally. BOWEL: Suboptimal evaluation of bowel without enteric contrast. No suspicious dilatation. LYMPH NODES: No greater than 1cm abdominal lymph nodes are appreciated. OSSEOUS STRUCTURES: Persistent right-sided pars defect L5 level without spondylolisthesis. OTHER: Persistent small to moderate-size fat-containing umbilical hernia. IMPRESSION: No significant new or acute finding is seen to account for patient's clinical symptoms.
== END | disposition home or self-care (01) ==
LOC: RADCTMAIN 12:13
PROVIDERS: ATTEND Family Medicine
DX: K30 Functional dyspepsia (principal); R43.8 Other disturbances of smell and taste; R10.9 Unspecified abdominal pain; Z85.47 Personal history of malignant neoplasm of testis
CPT/HCPCS: 74170; Q9967

== ENCOUNTER → 2021-02-01 | Outpatient (CLI) | payer BC ==
--- NOTE | 2021-02-01 12:16 | CT ---
EXAMINATION TYPE: CT abdomen pelvis w con DATE OF EXAM: 02/01/2021 COMPARISON: CT September 14, 2019 and older CTs HISTORY: follow up to testicular CA CT DLP: 1056 mGycm, Automated Exposure Control for Dose Reduction was Utilized. CONTRAST: CT scan of the abdomen and pelvis is performed with oral and with IV Contrast, patient injected with 100 mL of Isovue 300. FINDINGS: LUNG BASES: No significant abnormality is appreciated. LIVER/GB: No significant abnormality is appreciated. PANCREAS: No significant abnormality is seen. SPLEEN: No significant abnormality is seen. ADRENALS: No significant abnormality is seen. KIDNEYS: No significant abnormality is seen. BOWEL: The oral contrast reaches the level of the rectum. No suspicious small or large bowel dilatati on. PROSTATE/SEMINAL VESICLES: No gross abnormality seen. LYMPH NODES: No new greater than 1cm abdominal or pelvic lymph nodes are appreciated. Gonzalez 1.7 x 1.5 cm low dense lesion left inguinal region axial image 71 presumed posttreatment change with some a nterior inferior scarring. Left testicle surgically absent. OSSEOUS STRUCTURES: Persistent right-sided pars defect L5 level. No significant spondylolisthesis. OTHER: Small to moderate-sized fat-containing umbilical hernia redemonstrated. IMPRESSION: No significant new mass or adenopathy to suggest active neoplastic recurrence.
== END | disposition home or self-care (01) ==
LOC: RADCTMAIN 07:40
PROVIDERS: ATTEND Urology
DX: C62.12 Malignant neoplasm of descended left testis (principal)
CPT/HCPCS: 74177; Q9967

== ENCOUNTER → 2021-05-26 | Outpatient (CLI) | payer OTHER ==
--- NOTE | 2021-05-26 16:34 | XR ---
EXAMINATION TYPE: XR lumbar spine 2 or 3V DATE OF EXAM: 05/26/2021 COMPARISON: 07/17/2011 HISTORY: Pain from lifting injury TECHNIQUE: 3 view lumbar spine FINDINGS: There are 5 lumbar-type vertebral bodies. Pedicles are intact. Disc heights are preserved. Vertebral body heights are preserved. An occult spina bifida occulta at L5 is present. Findings are s table over the interval. IMPRESSION: 1. Spina bifida occulta at L5, stable. 2. No acute osseous abnormality lumbar spine
== END | disposition home or self-care (01) ==
LOC: RADXRMAIN 16:10
PROVIDERS: ATTEND Emergency Medicine
DX: S39.012A Strain of muscle, fascia and tendon of lower back, initial encounter (principal); Q05.7 Lumbar spina bifida without hydrocephalus; X58.XXXA Exposure to other specified factors, initial encounter
CPT/HCPCS: 72100

== ENCOUNTER 2021-12-20 18:30 | Emergency (ER) | payer BC, OTHER ==
[2021-12-20 18:53] VITALS: BP 131/82; PULSE 85; RESP 18; TEMP 99.3
[2021-12-20] MEDS ORDERED: MORPHINE SULFATE 4 MG/ML SYRINGE IVP STA (21:43)
[2021-12-20] MEDS ORDERED: VANCOMYCIN IV PER PHARMACY 1 EACH MISC MISCELLANE PRN (21:44)
[2021-12-20] MEDS ORDERED: VANCOMYCIN 1,250 MG in SODIUM CHLORIDE 0.9% 250 ML IVPB ONE (22:00)
[2021-12-20 22:25] LABS: Basophils # (A) 0.2 k/uL (0-0.2); Basophils % (A) 2 %; Eosinophils # (A) 0.2 k/uL (0-0.7); Eosinophils % (A) 3 %; HCT 42.9 % (39.0-53.0); HGB 14.8 gm/dL (13.0-17.5); Lymphocytes # (A) 2.2 k/uL (1.0-4.8); Lymphocytes % (A) 28 %; MCH 30.6 pg (25.0-35.0); MCHC 34.5 g/dL (31.0-37.0); MCV 88.7 fL (80.0-100.0); Mean Platelet Volume 7.6; Monocytes # (A) 0.4 k/uL (0-1.0); Monocytes % (A) 5 %; Neutrophils # (A) 4.7 k/uL (1.3-7.7); Neutrophils % (A) 60 %; Platelet Count 306 k/uL (150-450); RBC 4.84 m/uL (4.30-5.90); RDW 12.5 % (11.5-15.5); WBC 7.9 k/uL (3.8-10.6)
[2021-12-20 22:34] LABS: ALT 24 U/L (4-49); AST 28 U/L (17-59); African American GFR (CKD) >90 (>60 ml/min/1.73 sqM); Albumin 4.9 g/dL (3.5-5.0); Alkaline Phosphatase 88 U/L (38-126); Anion Gap 12 mmol/L; Blood Urea Nitrogen 22 mg/dL (9-20); Carbon Dioxide 24 mmol/L (22-30); Chloride 104 mmol/L (98-107); Glucose 135 mg/dL (74-99); Non-African American GFR(CKD) >90 (>60 ml/min/1.73 sqM); Potassium 3.8 mmol/L (3.5-5.1); Sodium 140 mmol/L (137-145); Total Bilirubin 0.6 mg/dL (0.2-1.3); Total Protein 7.8 g/dL (6.3-8.2)
--- NOTE | 2021-12-20 22:44 | XR ---
EXAMINATION TYPE: XR foot complete RT DATE OF EXAM: 12/20/2021 COMPARISON: NONE HISTORY: Infection and pain TECHNIQUE: 3 views FINDINGS: Metatarsals are intact. I see no fracture nor dislocation. Joint spaces are normal. Toes ap pear intact. There are no erosions IMPRESSION: Negative left foot exam. No fracture. No sign of osteomyelitis.
--- NOTE | 2021-12-20 23:03 | ED ---
General Adult HPI - General Chief complaint: Wound/Laceration Stated complaint: foot pain Time Seen by Provider: 12/20/21 21:23 Source: patient, RN notes reviewed, old records reviewed Mode of arrival: ambulatory Limitations: no limitations - History of Present Illness Initial comments: Patient is a 36-year-old male with past medical history remarkable for cellulitis of the third toe of the right foot who presents emergency Department over concern for return of the cellulitis. Patient was recently treated 2 months ago for similar symptoms. He states it resolved but has since come back. Does have an ultrasound appointment for his foot as well as follow up with a foot doctor, however is concerned that the infection came back and that he requires antibiotics. States it fully recovered last time. Denies any numbness, weakness of the foot. Denies any nausea, vomiting, chest pain, shortness breath, fevers, chills, cough. States it is red, and painful to touch. Denies any discharge or injury. His no other acute complaints at this time. Is seeking antibiotics as well as further evaluation. - Related Data Home Medications Medication Instructions Recorded Confirmed Famotidine [Pepcid] 20 mg PO BID PRN 12/20/21 12/20/21 Sildenafil Citrate 50 - 100 mg PO DAILY PRN 12/20/21 12/20/21 Previous Rx's Medication Instructions Recorded Cephalexin [Keflex] 500 mg PO Q8HR 10 Days #30 cap 12/20/21 Sulfamethox-Tmp 800-160Mg [Bactrim 1 tab PO Q12HR 10 Days #20 tab 12/20/21 DS 800-160 mg] Allergies Allergy/AdvReac Type Severity Reaction Status Date / Time codeine Allergy Vomiting Verified 12/20/21 21:31 Review of Systems ROS Statement: Those systems with pertinent positive or pertinent negative responses have been documented in the HPI. Review of Systems: CONST: Denies fever EYES: Denies blurry vision ENT: Denies nasal congestion C/V: Denies Chest pain RESP: Denies shortness of breath GI: Denies abdominal pain : Denies dysuria SKIN: Endorses concern for a skin infection MSK: Endorses toe pain NEURO: Denies headache ROS Other: All systems not noted in ROS Statement are negative. Past Medical History Past Medical History: Cancer Additional Past Medical History / Comment(s): testicular cancer, History of Any Multi-Drug Resistant Organisms: None Reported Past Surgical History: Hernia Repair Additional Past Surgical History / Comment(s): Mediport removed, Past Anesthesia/Blood Transfusion Reactions: No Reported Reaction Additional Past Anesthesia/Blood Transfusion Reaction / Comment(s): never had anesthesia Past Psychological History: No Psychological Hx Reported Smoking Status: Never smoker Past Alcohol Use History: None Reported Past Drug Use History: None Reported - Past Family History Mother Family Medical History: No Reported History General Exam - General Exam Comments Initial Comments: General: Appears in no acute distress. HEAD: Normal with no signs of head trauma. EYES: PERRLA, EOMI, conjunctiva normal, no discharge. ENT: Hearing grossly intact, normal oropharynx. RESPIRATORY: Clear breath sounds bilaterally. No wheezes, rales, or rhonchi. C/V: Regular rate and rhythm. S1 and S2 auscultated, no edema, peripheral pulses 2+ and intact throughout. Good capillary refill in all extremities. ABD: Abd is soft, nontender, nondistended EXT: Normal range of motion, no obvious deformity. Tender to palpation over the DIP of the right third toe. SKIN: Erythematous DIP of the right third toe. No underlying fluctuance. No underlying induration. No obvious discharge. Concerning for cellulitis. NEURO: Alert and oriented 4. Limitations: no limitations Course Vital Signs 12/20/21 18:49 Temperature 99.3 F Pulse Rate 85 Respiratory 18 Rate Blood Pressure 131/82 O2 Sat by Pulse 96 Oximetry Medical Decision Making - Medical Decision Making Based on the patient's presentation and physical exam, I'm concerned for rec urrent cellulitis of the right third toe. Prior x-rays of the patient has with him state that there is concern for osteomyelitis, and therefore we will obtain repeat x-rays in addition to basic laboratory studies. He'll receive IV analgesia as well as one-time dose of IV vancomycin here in the department. Patient was in agreement this plan. Laboratory studies remarkable for a very slightly elevated lactic acid 2.1, which I believe is likely secondary to dehydration as he states he has not been drinking much today. He is orally drinking water. X-ray reveals no acute injury or sign of osteomyelitis. On reevaluation, patient is feeling improved. 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 He was in agreement this plan. He will be given prescriptions, Keflex as well as Bactrim like last time at his request. I believe this is reasonable. Strict return precautions were discussed. I will provide the patient with a prescription for Keflex, Bactrim. I instructed the patient to follow up with their PCP in the next 3 days. I explained that the patient should return to the emergency department if they experience any worsening symptoms. Strict return precautions were discussed with the patient. The patient expressed understanding of these instructions. I answered all questions that the patient had. The patient was discharged home in good condition with their prescriptions and follow up information. - Lab Data Result diagrams: 12/20/21 22:18 12/20/21 22:18 Lab Results 12/20/21 12/20/21 12/20/21 Range/Units 22:18 22:18 22:18 WBC 7.9 (3.8-10.6) k/uL RBC 4.84 (4.30-5.90) m/uL Hgb 14.8 (13.0-17.5) gm/dL Hct 42.9 (39.0-53.0) % MCV 88.7 (80.0-100.0) fL MCH 30.6 (25.0-35.0) pg MCHC 34.5 (31.0-37.0) g/dL RDW 12.5 (11.5-15.5) % Plt Count 306 (150-450) k/uL MPV 7.6 Neutrophils % 60 % Lymphocytes % 28 % Monocytes % 5 % Eosinophils % 3 % Basophils % 2 % Neutrophils # 4.7 (1.3-7.7) k/uL Lymphocytes # 2.2 (1.0-4.8) k/uL Monocytes # 0.4 (0-1.0) k/uL Eosinophils # 0.2 (0-0.7) k/uL Basophils # 0.2 (0-0.2) k/uL Sodium 140 (137-145) mmol/L Potassium 3.8 (3.5-5.1) mmol/L Chloride 104 (98-107) mmol/L Carbon Dioxide 24 (22-30) mmol/L Anion Gap 12 mmol/L BUN 22 H (9-20) mg/dL Creatinine 1.05 (0.66-1.25) mg/dL Est GFR (CKD-EPI)AfAm >90 (>60 ml/min/1.73 sqM) Est GFR (CKD-EPI)NonAf >90 (>60 ml/min/1.73 sqM) Glucose 135 H (74-99) mg/dL Plasma Lactic Acid Les 2.1 H* (0.7-2.0) mmol/L Calcium 10.0 (8.4-10.2) mg/dL Total Bilirubin 0.6 (0.2-1.3) mg/dL AST 28 (17-59) U/L ALT 24 (4-49) U/L Alkaline Phosphatase 88 (38-126) U/L Total Protein 7.8 (6.3-8.2) g/dL Albumin 4.9 (3.5-5.0) g/dL Disposition Clinical Impression: Cellulitis Disposition: HOME SELF-CARE Condition: Good Instructions (If sedation given, give patient instructions): Cellulitis (ED) Prescriptions: Sulfamethox-Tmp 800-160Mg [Bactrim DS 800-160 mg] 1 tab PO Q12HR 10 Days #20 tab Cephalexin [Keflex] 500 mg PO Q8HR 10 Days #30 cap Is patient prescribed a controlled substance at d/c from ED?: No Referrals: None,Stated [Primary Care Provider] - 1-2 days
[2021-12-21] MEDS ORDERED: VANCOMYCIN 1,250 MG in SODIUM CHLORIDE 0.9% 250 ML IVPB SCH (10:00)
== END 2021-12-21 00:34 | disposition home or self-care (01) ==
LOC: EC 18:30
DX: L03.115 Cellulitis of right lower limb (principal)
CPT/HCPCS: 36415; 80053; 83605; 85025; 87040; 73630; 99283; 96365; 96366; 96375; J3370; J2270

== ENCOUNTER → 2022-01-07 | Outpatient (CLI) | payer OTHER ==
--- NOTE | 2022-01-17 22:50 | US ---
EXAMINATION TYPE: US arterial LE single level DATE OF EXAM: 01/07/2022 1:28 PM CLINICAL HISTORY: I73.9 PERIPHERAL VASCULAR DISEASE, UNSPECIFIED. Discoloration of several toes and r ight heel. Personal history of testicular cancer. Doppler Waveforms: Right: Multiphasic Left: Multiphasic Ankle-Brachial Indices: Right: 1.07 Left: 1.02 Toe Brachial Indices: Right: 0.63 Left: 0.69 IMPRESSION: Normal study.
== END | disposition home or self-care (01) ==
LOC: RADUSWWP 12:45
PROVIDERS: ATTEND Podiatrist Foot & Ankle Surgery
DX: I73.9 Peripheral vascular disease, unspecified (principal)
CPT/HCPCS: 93922

== ENCOUNTER → 2022-08-26 | Outpatient (CLI) | payer OTHER ==
--- NOTE | 2022-08-26 21:03 | XR ---
EXAMINATION TYPE: XR chest 2V DATE OF EXAM: 08/26/2022 4:30 PM COMPARISON: None TECHNIQUE: XR chest 2V Frontal and lateral views of the chest. CLINICAL INDICATION:Male, 36 years old with history of C61 malignant neoplasm of the prostate; FINDINGS: Lungs/Pleura: There is no evidence of pleural effusion, focal consolidation, or pneumothorax. Pulmonary vascularity: Unremarkable. Heart/mediastinum: Cardiomediastinal silhouette is unremarkable. Musculoskeletal: No acute osseous pathology. No suspicious osseous lesions identified on radiography. IMPRESSION: No acute cardiopulmonary disease/process.
== END | disposition home or self-care (01) ==
LOC: LABWHC1 16:02
PROVIDERS: ATTEND Urology
DX: I10 Essential (primary) hypertension (principal); E11.9 Type 2 diabetes mellitus without complications; I48.91 Unspecified atrial fibrillation; J44.9 Chronic obstructive pulmonary disease, unspecified; C32.9 Malignant neoplasm of larynx, unspecified
CPT/HCPCS: 36415; 71046; 82105; 84702

== ENCOUNTER 2022-10-06 15:53 | Emergency (ER) | payer OTHER ==
[2022-10-06 16:07] VITALS: RESP 18
[2022-10-06] MEDS ORDERED: IBUPROFEN 600 MG TAB PO STA (16:30)
[2022-10-06] MEDS ORDERED: ACETAMINOPHEN TAB 325 MG TAB PO STA (16:30)
--- NOTE | 2022-10-06 16:33 | ED ---
URI HPI - General Chief Complaint: Upper Respiratory Infection Stated Complaint: Headache,Body Aches Time Seen by Provider: 10/06/22 16:23 Source: patient, RN notes reviewed, old records reviewed Mode of arrival: ambulatory Limitations: no limitations - History of Present Illness Initial Comments: This is a nontoxic appearing 37-year-old male that presents with complaints of headache, body aches, fever, nasal congestion on and off since Monday. is also sick with similar symptoms. States he has one good day and his is sick and then the next day she feels better and he sick again. States did have a oral temperature of 104. Denies any medical history. No medicines taken for the past 5 hours. Nonsmoker. MD Complaint: fever, sore throat, rhinorrhea, nasal congestion, sinus pain -: days(s) (4) Severity scale (1-10): 4 Quality: aching Consistency: intermittent Context: sick contacts () Associated Symptoms: fever, chills, myalgias, rhinorrhea, nasal congestion, sore throat Treatments Prior to Arrival: none - Related Data Home Medications Medication Instructions Recorded Confirmed Famotidine [Pepcid] 20 mg PO BID PRN 12/20/21 12/20/21 Sildenafil Citrate 50 - 100 mg PO DAILY PRN 12/20/21 12/20/21 Previous Rx's Medication Instructions Recorded Cephalexin [Keflex] 500 mg PO Q8HR 10 Days #30 cap 12/20/21 Sulfamethox-Tmp 800-160Mg [Bactrim 1 tab PO Q12HR 10 Days #20 tab 12/20/21 DS 800-160 mg] Allergies Allergy/AdvReac Type Severity Reaction Status Date / Time codeine Allergy Vomiting Verified 10/06/22 16:07 Review of Systems ROS Statement: Those systems with pertinent positive or pertinent negative responses have been documented in the HPI. ROS Other: All systems not noted in ROS Statement are negative. Past Medical History Past Medical History: Cancer Additional Past Medical History / Comment(s): testicular cancer, History of Any Multi-Drug Resistant Organisms: None Reported Past Surgical History: Hernia Repair Additional Past Surgical History / Comment(s): Mediport removed, Past Anesthesia/Blood Transfusion Reactions: No Reported Reaction Additional Past Anesthesia/Blood Transfusion Reaction / Comment(s): never had anesthesia Past Psychological History: No Psychological Hx Reported Smoking Status: Former smoker Past Alcohol Use History: None Reported Past Drug Use History: None Reported - Past Family History Mother Family Medical History: No Reported History General Exam Limitations: no limitations General appearance: alert, in no apparent distress Head exam: Present: atraumatic, normocephalic, normal inspection Eye exam: Present: normal appearance. Absent: scleral icterus, conjunctival injection, periorbital swelling ENT exam: Present: normal oropharynx, mucous membranes moist Expanded Mouth exam: Present: tongue normal, tongue elevation. Absent: drooling, trismus, muffled voice Throat exam: negative: tonsillar erythema, tonsillomegaly, tonsillar exudate, R peritonsillar mass, L peritonsillar mass Neck exam: Present: full ROM. Absent: tenderness, meningismus, lymphadenopathy Respiratory exam: Present: normal lung sounds bilaterally. Absent: respiratory distress, accessory muscle use Cardiovascular Exam: Present: regular rate GI/Abdominal exam: Present: soft Neurological exam: Present: alert, oriented X3 Psychiatric exam: Present: normal affect, normal mood Skin exam: Present: warm, dry, normal color. Absent: cyanosis, diaphoretic, petechiae, pallor Course Vital Signs 10/06/22 10/06/22 16:03 18:09 Temperature 99.3 F 97.8 F Pulse Rate 95 72 Respiratory 18 18 Rate Blood Pressure 124/81 133/72 O2 Sat by Pulse 98 98 Oximetry Medical Decision Making - Medical Decision Making Patient is Covid positive. also tested positive. Vital signs are stable Patient was given Tylenol and Motrin for discomfort. Chest x-ray performed due to fever and congestion showing no evidence of consolidation, trachea midline, cardiac silhouette within normal size. No e vidence of free air. Radiologist interpretation no acute cardiopulmonary disease or process. He will be discharged home directed to increase fluid intake. Vitamin C, vitamin D and zinc daily. Quarantine for 5 days from symptom onset and until resolution of symptoms and fever. He is agreeable to this plan of care. Case is crest with Dr. Alcaraz Was pt. sent in by a medical professional or institution? @ -no Did you speak to anyone other than the patient for history? @ -no Did you review nursing and triage notes? @ -yes i agree Were old charts reviewed? @ -no Differential Diagnosis? @ -Differential Fever: Pneumonia, viral URI, endocarditis, myocarditis, pericarditis, otitis, sinusitis, peritonsillar Abscess, retropharyngeal Abscess, epiglottitis, peritonitis, appendicitis, Emma cystitis, diverticulitis, hepatitis, colitis, UTI, PID, TOA, pyelonephritis, prostatitis, epididymitis, meningitis, encephalitis, pulmonary embolism, CVA, thyroid storm, pancreatitis, adrenal crisis, cavernous sinus thrombosis, this is not meant to be an all-inclusive list. EKG interpreted by me (3pts min.)? @ -[none] X-rays interpreted by me (1pt min.)? @ -yes What testing was considered but not performed? (CT, X-rays, U/S, labs)? Why? @ none What meds were considered but not given? Why? @ -Antibiotics are considered however chest x-ray is negative, this is a viral illness, Did you discuss the management of the patient with other professionals? @ -no Did you reconcile home meds? @ -no Was smoking cessation discussed for >3mins.? @ -no Was critical care preformed (if so, how long)? @ -no Were there social determinants of health that impacted care today? How? (Homelessness, low income, unemployed, alcoholism, drug addiction, transportation, low edu. Level, literacy, decrease access to med. care, skilled nursing, rehab)? @ -none Was there de-escalation of care discussed even if they declined? (Discuss DNR or withdrawal of care, Hospice)? @ -no What co-morbidities impacted this encounter? (DM, HTN, Smoking, COPD, CAD, Cancer, CVA, Hep., AIDS, mental health diagnosis, sleep apnea, morbid obesity)? @ -History of testicular cancer Was patient admitted / discharged? @ -Discharged Undiagnosed new problem with uncertain prognosis? @ -Coronavirus Drug Therapy requiring intensive monitoring for toxicity (Heparin, Nitro, Insulin, Cardizem)? @ -no Were any procedures done? @ -none Diagnosis/symptom? @ -Coronavirus Acute, or Chronic, or Acute on Chronic? @ -acute Uncomplicated (without systemic symptoms) or Complicated (systemic symptoms)? @ -Uncomplicated Side effects of treatment? @ -[none] Exacerbation, Progression, or Severe Exacerbation] @ -[no] Poses a threat to life or bodily function? @ -[no] - Lab Data Lab Results 10/06/22 Range/Units 16:39 Influenza Type A (PCR) Not Detected (Not Detectd) Influenza Type B (PCR) Not Detected (Not Detectd) RSV (PCR) Not Detected (Not Detectd) SARS-CoV-2 (PCR) Detected A (Not Detectd) Disposition Clinical Impression: COVID-19 Disposition: HOME SELF-CARE Condition: Good Instructions (If sedation given, give patient instructions): COVID-19 (Coronavirus Disease 2019) (ED) Additional Instructions: Increase your fluid intake. Tylenol or Motrin as needed for any body aches or fevers. Vitamin C, vitamin D and zinc daily to improve your immune health. Return to the emergency room with any new or concerning symptoms. Is patient prescribed a controlled substance at d/c from ED?: No Referrals: None,Stated [Primary Care Provider] - 1-2 days Time of Disposition: 17:58
--- NOTE | 2022-10-06 16:56 | XR ---
EXAMINATION TYPE: XR chest 2V DATE OF EXAM: 10/06/2022 4:48 PM COMPARISON: Chest radiographs from 08/26/2022 TECHNIQUE: XR chest 2V Frontal and lateral views of the chest. CLINICAL INDICATION:Male, 37 years old with history of fever cough; FINDINGS: Lungs/Pleura: There is no evidence of pleural effusion, focal consolidation, or pneumothorax. Pulmonary vascularity: Unremarkable. Heart/mediastinum: Cardiomediastinal silhouette is unremarkable. Musculoskeletal: No acute osseous pathology. IMPRESSION: No acute cardiopulmonary disease/process.
[2022-10-06 18:10] VITALS: BP 133/72; PULSE 72; TEMP 97.8
== END 2022-10-06 18:09 | disposition home or self-care (01) ==
LOC: EC 15:53
DX: U07.1 COVID-19 (principal); Z87.891 Personal history of nicotine dependence; Z88.5 Allergy status to narcotic agent
CPT/HCPCS: 71046; 87636; 99284

== ENCOUNTER 2023-10-04 18:13 | Emergency (ER) | payer BC, OTHER ==
--- NOTE | 2023-10-04 18:36 | ED ---
General Adult HPI - General Source: patient Mode of arrival: ambulatory Limitations: no limitations <Vivian Jose - Last Filed: 10/04/23 18:31> <Trinity Mo - Last Filed: 10/05/23 01:08> - General Chief complaint: Recheck/Abnormal Lab/Rx Stated complaint: IHS-Chest pain-Throat pain - History of Present Illness Initial comments: Patient concerned that he may be exposed to carbon monoxide at work. Patient and multiple coworkers had a sudden onset of feeling short of breath, burning in the chest, burning in the eyes and headache and smelling an off odor. (Vivian Jose) 38-year-old male presents to the emergency department for evaluation of possible carbon monoxide exposure at work. He states that while working today he felt a slight headache, shortness of breath. He states that he left the building that he was currently in and the symptoms improved right away. He notes that other people at work have the same symptoms but were unable to come in to be evaluated. He states that he is feeling well now and has no complaints. (Trinity Mo) - Related Data Home Medications Medication Instructions Recorded Confirmed Famotidine [Pepcid] 20 mg PO BID PRN 12/20/21 12/20/21 Sildenafil Citrate 50 - 100 mg PO DAILY PRN 12/20/21 12/20/21 Previous Rx's Medication Instructions Recorded Cephalexin [Keflex] 500 mg PO Q8HR 10 Days #30 cap 12/20/21 Sulfamethox-Tmp 800-160Mg [Bactrim 1 tab PO Q12HR 10 Days #20 tab 12/20/21 DS 800-160 mg] Allergies Allergy/AdvReac Type Severity Reaction Status Date / Time codeine Allergy Vomiting Verified 10/04/23 18:25 Review of Systems ROS Other: All systems not noted in ROS Statement are negative. <Vivian Jose - Last Filed: 10/04/23 18:31> ROS Other: All systems not noted in ROS Statement are negative. <Trinity Mo - Last Filed: 10/05/23 01:08> ROS Statement: Those systems with pertinent positive or pertinent negative responses have been documented in the HPI. Past Medical History Past Medical History: Cancer Additional Past Medical History / Comment(s): testicular cancer, History of Any Multi-Drug Resistant Organisms: None Reported Past Surgical History: Hernia Repair Additional Past Surgical History / Comment(s): Mediport removed, Past Anesthesia/Blood Transfusion Reactions: No Reported Reaction Additional Past Anesthesia/Blood Transfusion Reaction / Comment(s): never had anesthesia Past Psychological History: No Psychological Hx Reported Smoking Status: Former smoker Past Alcohol Use History: None Reported Past Drug Use History: None Reported - Past Family History Mother Family Medical History: No Reported History <Vivian Jose - Last Filed: 10/04/23 18:31> General Exam Limitations: no limitations <Vivian Jose - Last Filed: 10/04/23 18:31> Limitations: no limitations General appearance: alert, in no apparent distress Head exam: Present: atraumatic, normocephalic, normal inspection Eye exam: Present: normal appearance, PERRL, EOMI. Absent: scleral icterus, conjunctival injection, periorbital swelling ENT exam: Present: normal exam, mucous membranes moist Neck exam: Present: normal inspection. Absent: tenderness, meningismus, lymphadenopathy Respiratory exam: Present: normal lung sounds bilaterally. Absent: respiratory distress, wheezes, rales, rhonchi, stridor Cardiovascular Exam: Present: regular rate, normal rhythm, normal heart sounds. Absent: systolic murmur, diastolic murmur, rubs, gallop, clicks GI/Abdominal exam: Present: soft. Absent: distended, tenderness, guarding, rebound, rigid Extremities exam: Present: normal inspection, full ROM, normal capillary refill. Absent: tenderness, pedal edema, joint swelling, calf tenderness Back exam: Present: normal inspection Neurological exam: Present: alert, oriented X3 Psychiatric exam: Present: normal affect, normal mood Skin exam: Present: warm, dry, intact, normal color. Absent: rash <Trinity Mo - Last Filed: 10/05/23 01:08> - General Exam Comments Initial Comments: Visual Physical Exam Vital signs reviewed General: Well-appearing, nontoxic, no acute distress. Head: Normocephalic, atraumatic Eyes: PERRLA, EOMI ENT: Airway patent Chest: Nonlabored breathing Skin: No visual rash, normal skin tone Neuro: Alert and oriented 3 Musculoskeletal: No gross abnormalities O2 sat 97% on room (Vivian Jose) Course Vital Signs 10/04/23 18:21 Temperature 98.3 F Pulse Rate 82 Respiratory 16 Rate Blood Pressure 124/84 O2 Sat by Pulse 97 Oximetry Medical Decision Making <Vivian Jose - Last Filed: 10/04/23 18:31> - Lab Data Result diagrams: 10/04/23 19:11 10/04/23 19:11 <Trinity Mo - Last Filed: 10/05/23 01:08> - Medical Decision Making Quick note portion completed by myself, electronically LAWANDA Santiago. (Vivian Jose) Was pt. sent in by a medical professional or institution (, PA, FLIGHT SOFTWARE TEST ENGINEER, urgent care, hospital, or [facility]...) When possible be specific @ -No Did you speak to anyone other than the patient for history (EMS, parent, family, police, friend...)? What history was obtained from this source @ -No Did you review nursing and triage notes (agree or disagree)? Why? @ -I reviewed and agree with nursing and triage notes Were old charts reviewed (outside hosp., previous admission, EMS record, old EKG, old radiological studies, urgent care reports/EKG's, [facility] records)? Report findings @ -No old charts were reviewed Differential Diagnosis (chest pain, altered mental status, abdominal pain women, abdominal pain men, vaginal bleeding, weakness, fever, dyspnea, syncope, headache, dizziness, GI bleed, back pain, seizure, CVA, palpatations, mental health, musculoskeletal)? @ -not applicable EKG interpreted by me (3pts min.). @ -none X-rays interpreted by me (1pt min.). @ -None done CT interpreted by me (1pt min.). @ -None done U/S interpreted by me (1pt. min.). @ -None done What testing was considered but not performed or refused? (CT, X-rays, U/S, labs)? Why? @ -None What meds were considered but not given or refused? Why? @ -None Did you discuss the management of the patient with other professionals (professionals i.e. , PA, FLIGHT SOFTWARE TEST ENGINEER, lab, RT, psych nurse, healthcare social worker, [place] guide, te acher, contract officer, dependency case manager)? Give summary @ -No Was smoking cessation discussed for >3mins.? @ -No Was critical care preformed (if so, how long)? @ -No Were there social determinants of health that impacted care today? How? (Homelessness, low income, unemployed, alcoholism, drug addiction, transportation, low edu. Level, literacy, decrease access to med. care, alf, rehab)? @ -No Was there de-escalation of care discussed even if they declined (Discuss DNR or withdrawal of care, Hospice)? DNR status @ -No What co-morbidities impacted this encounter? (DM, HTN, Smoking, COPD, CAD, Cancer, CVA, ARF, Chemo, Hep., AIDS, mental health diagnosis, sleep apnea, morbid obesity)? @ -None Was patient admitted / discharged? Hospital course, mention meds given and rou te, prescriptions, significant lab abnormalities, going to OR and other pertinent info. @ -Discharged.Patient presented to the emergency department for evaluation of possible carbon monoxide exposure. Symptoms that patient was experiencing have resolved. From the situation. Other people at work had similar symptoms. Laboratory studies obtained. CBC essentially unremarkable, carbon monoxide 1.8; CMP shows calcium 10.4. Discussed results with patient. Drug screen performed for patient's work. Patient understands agreeable with discharge plan. Patient stable at discharge. Case discussed with Dr Alcaraz. Undiagnosed new problem with uncertain prognosis? @ -No Drug Therapy requiring intensive monitoring for toxicity (Heparin, Nitro, Insulin, Cardizem)? @ -No Were any procedures done? @ -No Diagnosis/symptom? @ -possible exposure to carbon monoxide Acute, or Chronic, or Acute on Chronic? @ -acute Uncomplicated (without systemic symptoms) or Complicated (systemic symptoms)? @ -uncomplicated Side effects of treatment? @ -No Exacerbation, Progression, or Severe Exacerbation? @ -No Poses a threat to life or bodily function? How? (Chest pain, [place], [place], pneumonia, PE, COPD, DKA, ARF, appy, cholecystitis, CVA, Diverticulitis, Homicidal, Suici laxmi, threat to staff... and all critical care pts) @ -No (Trinity Mo) - Lab Data Lab Results 10/04/23 10/04/23 10/04/23 Range/Units 19:11 19:11 19:11 WBC 7.7 (3.8-10.6) k/uL RBC 5.06 (4.30-5.90) m/uL Hgb 16.1 (13.0-17.5) gm/dL Hct 44.5 (39.0-53.0) % MCV 87.9 (80.0-100.0) fL MCH 31.8 (25.0-35.0) pg MCHC 36.2 (31.0-37.0) g/dL RDW 12.3 (11.5-15.5) % Plt Count 287 (150-450) k/uL MPV 7.6 Neutrophils % 67 % Lymphocytes % 21 % Monocytes % 6 % Eosinophils % 3 % Basophils % 2 % Neutrophils # 5.2 (1.3-7.7) k/uL Lymphocytes # 1.6 (1.0-4.8) k/uL Monocytes # 0.4 (0-1.0) k/uL Eosinophils # 0.3 (0-0.7) k/uL Basophils # 0.1 (0-0.2) k/uL Carbon Monoxide, Quant (<10.0) % Sodium 141 (137-145) mmol/L Potassium 4.1 (3.5-5.1) mmol/L Chloride 106 (98-107) mmol/L Carbon Dioxide 23 (22-30) mmol/L Anion Gap 12 mmol/L BUN 20 (9-20) mg/dL Creatinine 0.95 (0.66-1.25) mg/dL Est GFR (CKD-EPI)AfAm >90 (>60 ml/min/1.73 sqM) Est GFR (CKD-EPI)NonAf >90 (>60 ml/min/1.73 sqM) Glucose 98 (74-99) mg/dL Plasma Lactic Acid Les 1.0 (0.7-2.0) mmol/L Calcium 10.4 H (8.4-10.2) mg/dL Total Bilirubin 0.6 (0.2-1.3) mg/dL AST 34 (17-59) U/L ALT 31 (4-49) U/L Alkaline Phosphatase 101 (38-126) U/L Total Protein 8.5 H (6.3-8.2) g/dL Albumin 5.1 H (3.5-5.0) g/dL 10/04/23 Range/Units 20:15 WBC (3.8-10.6) k/uL RBC (4.30-5.90) m/uL Hgb (13.0-17.5) gm/dL Hct (39.0-53.0) % MCV (80.0-100.0) fL MCH (25.0-35.0) pg MCHC (31.0-37.0) g/dL RDW (11.5-15.5) % Plt Count (150-450) k/uL MPV Neutrophils % % Lymphocytes % % Monocytes % % Eosinophils % % Basophils % % Neutrophils # (1.3-7.7) k/uL Lymphocytes # (1.0-4.8) k/uL Monocytes # (0-1.0) k/uL Eosinophils # (0-0.7) k/uL Basophils # (0-0.2) k/uL Carbon Monoxide, Quant 1.8 (<10.0) % Sodium (137-145) mmol/L Potassium (3.5-5.1) mmol/L Chloride (98-107) mmol/L Carbon Dioxide (22-30) mmol/L Anion Gap mmol/L BUN (9-20) mg/dL Creatinine (0.66-1.25) mg/dL Est GFR (CKD-EPI)AfAm (>60 ml/min/1.73 sqM) Est GFR (CKD-EPI)NonAf (>60 ml/min/1.73 sqM) Glucose (74-99) mg/dL Plasma Lactic Acid Les (0.7-2.0) mmol/L Calcium (8.4-10.2) mg/dL Total Bilirubin (0.2-1.3) mg/dL AST (17-59) U/L ALT (4-49) U/L Alkaline Phosphatase (38-126) U/L Total Protein (6.3-8.2) g/dL Albumin (3.5-5.0) g/dL Disposition <Vivian Jose - Last Filed: 10/04/23 18:31> Is patient prescribed a controlled substance at d/c from ED?: No <Trinity Mo - Last Filed: 10/05/23 01:08> Clinical Impression: Carbon monoxide exposure Disposition: HOME SELF-CARE Condition: Stable Additional Instructions: Please follow up with your primary care provider. Return to the emergency department for new or worsening symptoms. Referrals: None,Stated [Primary Care Provider] - 1-2 days
[2023-10-04 18:40] VITALS: BP 124/84; PULSE 82; RESP 16; TEMP 98.3
[2023-10-04 19:40] LABS: Basophils # (A) 0.1 k/uL (0-0.2); Basophils % (A) 2 %; Eosinophils # (A) 0.3 k/uL (0-0.7); Eosinophils % (A) 3 %; HCT 44.5 % (39.0-53.0); HGB 16.1 gm/dL (13.0-17.5); Lymphocytes # (A) 1.6 k/uL (1.0-4.8); Lymphocytes % (A) 21 %; MCH 31.8 pg (25.0-35.0); MCHC 36.2 g/dL (31.0-37.0); MCV 87.9 fL (80.0-100.0); Mean Platelet Volume 7.6; Monocytes # (A) 0.4 k/uL (0-1.0); Monocytes % (A) 6 %; Neutrophils # (A) 5.2 k/uL (1.3-7.7); Neutrophils % (A) 67 %; Platelet Count 287 k/uL (150-450); RBC 5.06 m/uL (4.30-5.90); RDW 12.3 % (11.5-15.5); WBC 7.7 k/uL (3.8-10.6)
[2023-10-04 19:54] LABS: ALT 31 U/L (4-49); AST 34 U/L (17-59); African American GFR (CKD) >90 (>60 ml/min/1.73 sqM); Albumin 5.1 g/dL (3.5-5.0); Alkaline Phosphatase 101 U/L (38-126); Anion Gap 12 mmol/L; Blood Urea Nitrogen 20 mg/dL (9-20); Calcium 10.4 mg/dL (8.4-10.2); Carbon Dioxide 23 mmol/L (22-30); Chloride 106 mmol/L (98-107); Glucose 98 mg/dL (74-99); Non-African American GFR(CKD) >90 (>60 ml/min/1.73 sqM); Potassium 4.1 mmol/L (3.5-5.1); Sodium 141 mmol/L (137-145); Total Bilirubin 0.6 mg/dL (0.2-1.3); Total Protein 8.5 g/dL (6.3-8.2)
--- NOTE | 2023-10-04 20:13 | XR ---
EXAMINATION TYPE: XR chest 2V DATE OF EXAM: 10/04/2023 7:01 PM CLINICAL INDICATION:Male, 38 years old with history of dyspnea; [facility] COMPARISON: Chest radiographs from 10/06/2022. TECHNIQUE: XR chest 2V Frontal and lateral views of the chest. FINDINGS: Lungs/Pleura: There is no evidence of pleural effusion, focal consolidation, or pneumothorax. Pulmonary vascularity: Unremarkable. Heart/mediastinum: Cardiomediastinal silhouette is unremarkable. Musculoskeletal: No acute osseous pathology. Other findings: None IMPRESSION: No acute cardiopulmonary disease/process.
== END 2023-10-04 21:47 | disposition home or self-care (01) ==
LOC: EC 18:13
DX: T58.91XA Toxic effect of carbon monoxide from unspecified source, accidental (unintentional), initial encounter (principal); Z87.891 Personal history of nicotine dependence; Z88.5 Allergy status to narcotic agent
CPT/HCPCS: 36415; 71046; 80053; 82375; 83605; 85025; 99283

== ENCOUNTER 2023-11-03 17:13 | Emergency (ER) | payer OTHER, BC ==
[2023-11-03 17:33] VITALS: BP 133/84; PULSE 78; RESP 18; TEMP 98.2
--- NOTE | 2023-11-03 19:10 | ED ---
Recheck HPI - General Source: patient, RN notes reviewed Mode of arrival: ambulatory Limitations: no limitations <Marilee Liz - Last Filed: 11/03/23 19:08> <Scottie Denis - Last Filed: 11/03/23 20:33> - General Chief Complaint: Recheck/Abnormal Lab/Rx Stated Complaint: IHS-exposure to chemicals-sob Time Seen by Provider: 11/03/23 19:09 - History of Present Illness Initial Comments: Patient is a 38-year-old male presented ER with chief complaint of chemical exposure. Patient states at work he has had limited supply of PPE and works with chemicals. He endorses dyspnea. Denies any fevers or chills. Denies any other complaints. now is endorsing shortness of breath. (Marilee Liz) 38-year-old male presenting to the ED with a chief complaint of chemical exposure. Unsure of what chemicals he was exposed to however notes that they do not supply him PPE at work and according to the labels on the chemicals, advised to present to a physician if exposed to these chemicals. Reports that various chemicals have been splashed on his arms and he inhales chemical fumes all day while at work. At this time denies any irritation of the skin. Denies shortness of breath. However he does note some sore throat. Denies indigestion. No chest pain at this time. No other complaints at this time. (Scottie Denis) - Related Data Home Medications Medication Instructions Recorded Confirmed Famotidine [Pepcid] 20 mg PO BID PRN 12/20/21 12/20/21 Sildenafil Citrate 50 - 100 mg PO DAILY PRN 12/20/21 12/20/21 Previous Rx's Medication Instructions Recorded Cephalexin [Keflex] 500 mg PO Q8HR 10 Days #30 cap 12/20/21 Sulfamethox-Tmp 800-160Mg [Bactrim 1 tab PO Q12HR 10 Days #20 tab 12/20/21 DS 800-160 mg] Allergies Allergy/AdvReac Type Severity Reaction Status Date / Time codeine Allergy Vomiting Verified 11/03/23 17:27 Review of Systems ROS Other: All systems not noted in ROS Statement are negative. <Marilee Liz - Last Filed: 11/03/23 19:08> ROS Other: All systems not noted in ROS Statement are negative. <Scottie Denis - Last Filed: 11/03/23 20:33> ROS Statement: Those systems with pertinent positive or pertinent negative responses have been documented in the HPI. Past Medical History Past Medical History: Cancer Additional Past Medical History / Comment(s): testicular cancer, History of Any Multi-Drug Resistant Organisms: None Reported Past Surgical History: Hernia Repair Additional Past Surgical History / Comment(s): Mediport removed, Past Anesthesia/Blood Transfusion Reactions: No Reported Reaction Additional Past Anesthesia/Blood Transfusion Reaction / Comment(s): never had anesthesia Past Psychological History: No Psychological Hx Reported Smoking Status: Former smoker Past Alcohol Use History: None Reported Past Drug Use History: None Reported - Past Family History Mother Family Medical History: No Reported History <Marilee Liz - Last Filed: 11/03/23 19:08> General Exam Limitations: no limitations <Marilee Liz - Last Filed: 11/03/23 19:08> General appearance: alert, in no apparent distress Eye exam: Present: normal appearance ENT exam: Present: normal oropharynx Neck exam: Present: normal inspection Respiratory exam: Present: normal lung sounds bilaterally Cardiovascular Exam: Present: regular rate, normal rhythm GI/Abdominal exam: Present: soft Neurological exam: Present: alert, oriented X3 Skin exam: Present: warm, dry <Scottie Denis - Last Filed: 11/03/23 20:33> - General Exam Comments Initial Comments: Visual Physical Exam Vital signs reviewed General: Well-appearing, nontoxic, no acute distress. Head: Normocephalic, atraumatic Eyes: PERRLA, EOMI ENT: Airway patent Chest: Nonlabored breathing Skin: No visual rash, normal skin tone Neuro: Alert and oriented 3 Musculoskeletal: No gross abnormalities (Marilee Liz) Course Vital Signs 11/03/23 17:18 Temperature 98.2 F Pulse Rate 78 Respiratory 18 Rate Blood Pressure 133/84 O2 Sat by Pulse 98 Oximetry Medical Decision Making <Marilee Liz - Last Filed: 11/03/23 19:08> <Scotite Denis - Last Filed: 11/03/23 20:33> - Medical Decision Making I performed the quick note portion of the exam. Electronically signed by Marilee Liz PA-C (Marilee Liz) Was pt. sent in by a medical professional or institution (, [facility], [facility], urgent care, hospital, or senior care...) When possible be specific @ -No Did you speak to anyone other than the patient for history (EMS, parent, family, police, friend...)? What history was obtained from this source @ -No Did you review nursing and triage notes (agree or disagree)? Why? @ -I reviewed and agree with nursing and triage notes Were old charts reviewed (outside hosp., previous admission, EMS record, old EKG, old radiological studies, urgent care reports/EKG's, senior care records)? Report findings @ -No old charts were reviewed Differential Diagnosis (chest pain, altered mental status, abdominal pain women, abdominal pain men, vaginal bleeding, weakness, fever, dyspnea, syncope, headache, dizziness, GI bleed, back pain, seizure, CVA, palpatations, mental health, musculoskeletal)? @ -Differential Dyspnea: Coronary syndrome, arrhythmia, tamponade, asthma, COPD, pulmonary embolism, pneumonia, pneumothorax, pulmonary effusion, anaphylaxis, diabetic ketoacidosis, flailed chest, pulmonary contusion, diaphragmatic rupture, anemia, neuromuscular, this is not meant to be an all-inclusive list. EKG interpreted by me (3pts min.). @ -None X-rays interpreted by me (1pt min.). @ -None done CT interpreted by me (1pt min.). @ -None done U/S interpreted by me (1pt. min.). @ -None done What testing was considered but not performed or refused? (CT, X-rays, U/S, labs)? Why? @ -None What meds were considered but not given or refused? Why? @ -None Did you discuss the management of the patient with other professionals (professionals i.e. , [facility], [facility], lab, RT, psych nurse, social media marketing specialist, board layer, teacher, welfare officer, case briefer)? Give summary @ -No Was smoking cessation discussed for >3mins.? @ -No Was critical care preformed (if so, how long)? @ -No Were there social determinants of health that impacted care today? How? (Homelessness, low income, unemployed, alcoholism, drug addiction, transportation, low edu. Level, literacy, decrease access to med. care, intermediate, rehab)? @ -No Was there de-escalation of care discussed even if they declined (Discuss DNR or withdrawal of care, Hospice)? DNR status @ -No What co-morbidities impacted this encounter? (DM, HTN, Smoking, COPD, CAD, Cancer, CVA, ARF, Chemo, Hep., AIDS, mental health diagnosis, sleep apnea, morbid obesity)? @ -None Was patient admitted / discharged? Hospital course, mention meds given and route, prescriptions, significant lab abnormalities, going to OR and other pertinent info. @ -Discharge 38-year-old male presenting to the ED after a "chemical "exposure. Unsure of what these exact chemicals are however at this time patient only endorses some sore throat. Oropharynx exam unremarkable. Remainder of examination unremarkable. At this time vital signs stable, afebrile. Patient discharged home in stable condition and advised to follow-up with his PCP. Advised to wear PPE while at work. Discussed return precautions with patient and family who verbalized agreement. Undiagnosed new problem with uncertain prognosis? @ -No Drug Therapy requiring intensive monitoring for toxicity (Heparin, Nitro, Insulin, Cardizem)? @ -No Were any procedures done? @ -No Diagnosis/symptom? @ -"Chemical" exposure Acute, or Chronic, or Acute on Chronic? @ -Acute Uncomplicated (without systemic symptoms) or Complicated (systemic symptoms)? @ -Uncomplicated Side effects of treatment? @ -No Exacerbation, Progression, or Severe Exacerbation? @ -No Poses a threat to life or bodily function? How? (Chest pain, [place], [place], pneumonia, PE, COPD, DKA, ARF, appy, cholecystitis, CVA, Diverticulitis, Homicidal, Suicidal, threat to staff... and all critical care pts) @ -No (Scottie Denis) Disposition <Marilee Liz - Last Filed: 11/03/23 19:08> Is patient prescribed a controlled substance at d/c from ED?: No Time of Disposition: 20:33 <Scottie Denis - Last Filed: 11/03/23 20:33> Clinical Impression: Chemical exposure Disposition: HOME SELF-CARE Condition: Good Additional Instructions: Please return to the Emergency Department if symptoms worsen or any other concerns. Follow-up with your primary care provider. Please wear PPE while at work. Referrals: None,Stated [Primary Care Provider] - 1-2 days
--- NOTE | 2023-11-03 19:43 | XR ---
EXAMINATION TYPE: XR chest 2V DATE OF EXAM: 11/03/2023 7:18 PM CLINICAL INDICATION:Male, 38 years old with history of dyspnea; COMPARISON: Chest radiographs from 10/04/2023. TECHNIQUE: XR chest 2V Frontal and lateral views of the chest. FINDINGS: Lungs/Pleura: There is no evidence of pleural effusion, focal consolidation, or pneumothorax. Pulmonary vascularity: Unremarkable. Heart/mediastinum: Cardiomediastinal silhouette is unremarkable. Musculoskeletal: No acute osseous pathology. Other findings: None IMPRESSION: No acute cardiopulmonary disease/process.
== END 2023-11-03 20:41 | disposition home or self-care (01) ==
LOC: EC 17:13
DX: Z77.098 Contact with and (suspected) exposure to other hazardous, chiefly nonmedicinal, chemicals (principal); Z87.891 Personal history of nicotine dependence; Z88.5 Allergy status to narcotic agent
CPT/HCPCS: 71046; 99284

== ENCOUNTER → 2023-11-07 | Outpatient (CLI) | payer OTHER ==
--- NOTE | 2023-11-07 15:16 | XR ---
EXAMINATION TYPE: XR chest 2V DATE OF EXAM: 11/07/2023 COMPARISON: 11/03/2023 HISTORY: 38-year-old female [id number] TECHNIQUE: Frontal and lateral views FINDINGS: The cardiomediastinal silhouette, aorta, and pulmonary vasculature are within normal limits. Lungs an d pleural spaces are clear. IMPRESSION: No acute cardiopulmonary process.
== END | disposition home or self-care (01) ==
LOC: RADXRMAIN 14:55
PROVIDERS: ATTEND Emergency Medicine
DX: J68.9 Unspecified respiratory condition due to chemicals, gases, fumes and vapors (principal); R05.9 Cough, unspecified; R06.00 Dyspnea, unspecified
CPT/HCPCS: 71046